=== PATIENT | male | born 1980 | race Caucasian/White ===

== ENCOUNTER 2019-11-14 14:58 | Emergency (ER) | payer OTHER, SELFPAY ==
[2019-11-14 17:15] VITALS: BP 0/0; PULSE 0; RESP 0; TEMP -17.7; TEMP 0; O2SAT 0
== END 2019-11-14 17:16 | disposition left against medical advice (07) ==
PROVIDERS: Emergency Provider Nurse Practitioner
DX: S61.011D Laceration without foreign body of right thumb without damage to nail, subsequent encounter (principal)

== ENCOUNTER 2020-07-13 13:28 | Observation (INO) | payer OTHER, SELFPAY ==
[2020-07-13] VITALS (19 sets, daily range): BP systolic 93–137; BP diastolic 56–86; PULSE 40–71; RESP 14–20; TEMP 36.4–36.7; O2SAT 96–100; BMI 23.1; BMI 19.2; BMI 20.6
--- NOTE | 2020-07-13 | IR_ITS ---
APPROVED REPORT Patient Location: Emergent Uncrater: YANI Hernandez RT (R) PROCEDURES Left heart catheterization Left ventriculogram Selective coronary angiogram INDICATION Acute anterior ST elevation myocardial infarction Informed consent was obtained prior to the procedure. COMPLICATIONS none Estimated Blood Loss: less than 10 mls TECHNIQUE One percent lidocaine used to anesthetize the right anterior aspect of the wrist. The right radial artery was accessed via the Seldinger technique. A 6 [place] sheath was placed in the right radial artery. 2.5 mg of verapamil, 800 mcg of nitroglycerin, 1mg Lidocaine and 5000 U Heparin were given through the arterial sheath. A Papa catheter was also used to perform left heart catheterization, left ventriculogram and selective coronary angiogram. At the end of the procedure the sheath was removed good hemostasis was achieved using Traclet band, patient was transferred to the postop holding area in stable condition. ANGIOGRAPHIC RESULTS The left main artery Normal The left anterior descending artery Normal The circumflex artery Normal The right coronary artery Dominant normal The DOWNS ventriculogram reveals Preserved 55% The left ventricular end-diastolic pressure 15 mmHg IMPRESSION Normal coronary arteries Preserved ejection fraction Mildly elevated LVEDP PLAN 1. Recommend echocardiogram 2. Pulmonary artery CTA to evaluate for pulmonary embolism 3. Recommend admitting with continued diagnostics to determine etiology of symptoms Electronically signed by : Carlos Eduardo Weiner, 07/13/2020 13:56:12
--- NOTE | 2020-07-13 13:28 | ECG_ITS ---
APPROVED REPORT Exam: Resting ECG HR:74 bpm ECG Measurements Heart Rate 74 AXES OK 160 P 72 QRSd 110 QRS 84 QT 376 T 61 QTc 417 <Conclusion> Normal sinus rhythm Incomplete left bundle branch block ST elevation, probably due to early repolarization Borderline ECG Electronically signed by : Reinaldo Jj, 07/14/2020 09:00:17
--- NOTE | 2020-07-13 13:33 | PC.NURSE ---
Addendum entered by Shannan Carnes RN 07/13/20 14:15: correction: EKG sent to Dr Weiner via STEMI phone at 1331. called quality assurance qa lab technician immediately after sending ekg Original Note: EKG sent to Dr. Weiner per STEMI phone contacted quality assurance qa lab technician to see if Dr. Weiner was in the quality assurance qa lab technician to notify him of EKG sent to him, spoke with Aleida Penny RN states he is in the back and she will notify him of EKG that was sent to him.
--- NOTE | 2020-07-13 13:38 | PC.NURSE ---
patient to lab associate via stretcher on cardiac monitoring accompanied by YENI Campbell and Tere Mcintosh RN.
--- NOTE | 2020-07-13 13:39 | PC.NURSE ---
[facility] called and said Dr Weiner is calling it a STEMI , they wanted pt brought to [facility] and they would do all the prepping
--- NOTE | 2020-07-13 13:42 | HMH.EDGENADL ---
ED Disposition Clinical Impression: Syncope and collapse Chest pain Qualifiers: Chest pain type: precordial pain Qualified Code(s): R07.2 - Precordial pain Disposition: Still a Patient Condition on Discharge: Fair - Critical Care Critical Care Time: No Attestation: On 07/13/20, the high probability of a clinically significant, sudden or life threatening deterioration of the following system(s) required my full and direct attention, intervention and personal management. The time I documented below is in addition to time spent performing reported procedures but includes the following listed in this critical care notation. Medical Decision Making - [place] Inquiry Pt receiving controlled substance: No Vital Signs: 07/13/20 13:28 Temperature 98.0 F Temperature Source Oral Pulse Rate [Right Radial] 71 Respiratory Rate 18 Blood Pressure [Right Arm] 119/82 Blood Pressure Mean [Right Arm] 94 Blood Pressure Source [Right Arm] Automatic Cuff Blood Pressure Position [Right Arm] Sitting 02 Sat by Pulse Oximetry 98 Oxygen Delivery Method Room Air - Lab Data Lab Results 07/13/20 13:35: SARS-CoV-2 IgG Ab (Rapid) Negative, SARS-CoV-2 IgM Ab (Rapid) Negative 07/13/20 13:35: WBC 7.1, RBC 4.18 L, Hgb 12.2 L, Hct 36.8 L, MCV 87.9, MCH 29.1, MCHC 33.1, RDW 13.7, Plt Count 270, MPV 8.1, Neut % (Auto) 49.0, Lymph % (Auto) 38.9, [place] % (Auto) 5.6, Eos % (Auto) 5.1, Baso % (Auto) 1.4, Neut # (Auto) 3.5, Lymph # (Auto) 2.8, [place] # (Auto) 0.4, Eos # (Auto) 0.4, Baso # (Auto) 0.1 07/13/20 13:35: Sodium 139, Potassium 3.6, Chloride 103, Carbon Dioxide 28, Anion Gap 11.6, BUN 20, Creatinine 0.80, Estimated Creat Clear 120, Estimated GFR 108, Est GFR ( Amer) 131, Glucose 103 H, Calcium 9.5, Total Bilirubin 0.4, Direct Bilirubin 0.1, Conjugated Bilirubin 0.0, Indirect Bilirubin 0.3, Unconjugated Bilirubin 0.4, AST 31, ALT 27, Alkaline Phosphatase 67, Troponin I < 0.01, Total Protein 7.4, Albumin 4.7 07/13/20 13:54: Activated Clotting Time 285 H* Result diagrams: 07/13/20 13:35 07/13/20 13:35 Orders (Tests/Meds): ED MEDICATIONS Generic Name Dose Route Start Last Admin Trade Name Marina PRN Reason Stop Dose Admin Acetaminophen 325 mg 07/13/20 15:00 Acetaminophen 325mg Tab PO 08/12/20 14:59 Q4HP PRN Mild Pain Acetaminophen 650 mg 07/13/20 15:00 Acetaminophen 325mg Tab PO 08/12/20 14:59 Q4HP PRN Moderate Pain Sodium Chloride 1,000 mls @ 50 mls/hr 07/13/20 16:15 07/13/20 16:42 Sod Chlor 0.9% 1000ml Bag IV 08/12/20 16:14 50 mls/hr .Q20H AVANI Administration Miscellaneous 1 each 07/13/20 14:46 Consider Dual Antiplatelet Therapy For Stent * 08/12/20 14:34 NEEDED PRN Reminder for s/p stent Nitroglycerin 0.4 mg 07/13/20 14:46 Nitrostat 0.4mg Sl Tablet SL 08/12/20 14:34 Q5MINP PRN Chest Pain Sodium Chloride 10 ml 07/13/20 16:14 Saline Flush 10ml Syringe IV 08/12/20 16:13 NEEDED PRN Maintain IV Site Discontinued Medications Generic Name Dose Route Start Last Admin Trade Name Marina PRN Reason Stop Dose Admin Acetaminophen 325 mg 07/13/20 14:35 Acetaminophen 325mg Tab PO 08/12/20 14:34 Q4HP PRN PAIN Acetaminophen 650 mg 07/13/20 14:35 Acetaminophen 325mg Tab PO 08/12/20 14:34 Q4HP PRN PAIN Aspirin 324 mg 07/13/20 13:39 07/13/20 13:42 Aspirin 81mg Chewable Tablet PO 07/13/20 13:40 324 mg ONCE ONE Administration Diphenhydramine HCl 50 mg 07/13/20 13:48 07/13/20 13:52 Benadryl 50mg/1ml Vial IV 07/13/20 13:49 50 mg ONCE ONE Administration Fentanyl Citrate 25 mcg 07/13/20 13:48 07/13/20 13:53 Fentanyl 100mcg/2ml Vial IV 07/14/20 13:48 75 mcg Q3MINP PRN Administration Moderate to Severe Pain Fentanyl Citrate 50 mcg 07/13/20 13:48 Fentanyl 100mcg/2ml Vial IV 07/14/20 13:48 Q3MINP PRN Moderate to Severe Pain Fentanyl Citrate 25 mcg 07/13/20 13
[2020-07-13 13:45] LABS: Basophils # 0.1 K/mm3 (0-0.2); Basophils % 1.4 % (0.1-2.0); Eosinophils # 0.4 K/mm3 (0.0-0.4); Eosinophils % 5.1 % (0.1-12.0); Hematocrit 36.8 % (42.0-52.0); Hemoglobin 12.2 g/dL (14.1-18.0); Lymphocytes # 2.8 K/mm3 (0.7-4.5); Lymphocytes % 38.9 % (10-50); Mean Corpuscular HGB Conc 33.1 g/dL (31.8-35.4); Mean Corpuscular Hemoglobin 29.1 pg (27.0-31.2); Mean Corpuscular Volume 87.9 fl (80-94); Mean Platelet Volume 8.1 fl (7.4-10.4); Monocytes # 0.4 K/mm3 (0.1-1.0); Monocytes % 5.6 % (1.7-9.3); Neutrophils # 3.5 K/mm3 (1.8-7.8); Platelet Count 270 K/mm3 (142-424); Red Blood Count 4.18 M/mm3 (4.60-6.20); Red Cell Distribution Width 13.7 % (11.5-17.5); White Blood Count 7.1 K/mm3 (4.8-10.8)
[2020-07-13 13:53] LABS: Alanine Aminotransferase 27 U/L (12-78); Albumin Level 4.7 g/dl (3.5-5.0); Alkaline Phosphatase 67 U/L (38-126); Anion Gap 11.6 mEq/L (5-15); Aspartate Amino Transferase 31 U/L (17-59); Bilirubin,Direct 0.1 mg/dl (0.0-0.4); Bilirubin,Indirect 0.3 mg/dL (0.0-0.9); Bilirubin,Total 0.4 mg/dl (0.2-1.3); Bilirubin,Unconjugated 0.4 mg/dL (0.0-1.1); Blood Urea Nitrogen 20 mg/dl (9-20); Calcium 9.5 mg/dl (8.4-10.2); Carbon Dioxide 28 mmol/L (22.0-30.0); Chloride 103 mmol/L (98-107); Creatinine Clearance Estimated 120 mL/min (50-200); Estimated Glomerular Filt Rate 108 ml/min (>60); GFR (African American) 131 ML/MIN (>60); Glucose 103 mg/dl (74-100); Potassium 3.6 mmoL/L (3.5-5.1); Sodium 139 mmol/L (136-145); Total Protein,Serum 7.4 g/dl (6.3-8.2)
[2020-07-13 14:05] LABS: Troponin I < 0.01 ng/ml (0.00-0.034)
[2020-07-13 14:09] LABS: Coronavirus 19 IgG Antibody Negative (Negative); Coronavirus 19 IgM Antibody Negative (Negative)
[2020-07-13 14:21] LABS: CATHL Activated Clotting Time 285 SEC (74-125)
--- NOTE | 2020-07-13 15:07 | PC.NURSE ---
Pt arrived to the floor at this time
[2020-07-13 17:44] LABS: Troponin I < 0.01 ng/ml (0.00-0.034)
--- NOTE | 2020-07-13 17:53 | PC.NURSE ---
TRACELET REMOVED AT 1730 PER PROTOCOL. NO COMPLICATION NOTED, PT DENIES PAIN AT SITE, PULSES PALPABLE DISTAL TO CATH SITE. HANDS WARM AND SENSATION INTACT. NO DRAINAGE OR BLEEDING NOTED.
--- NOTE | 2020-07-13 18:28 | PC.NURSE ---
telfa and tegaderm was applied to cath site after removal.
[2020-07-13 20:27] LABS: Troponin I < 0.01 ng/ml (0.00-0.034)
[2020-07-14] VITALS: PULSE 40
--- NOTE | 2020-07-14 03:59 | PC.NURSE ---
Pt rested well this shift. Right radial drsg remains C/D/I. No complaints reported to staff. Pt has been independent with ADL's w/ girlfriend at bedside throughout the night. Sinus alan on telemetry.
[2020-07-14 04:00] VITALS: BP 104/62; PULSE 50; PULSE 54; RESP 16; TEMP 36.8; O2SAT 97
[2020-07-14 05:11] VITALS: BMI 20.7
[2020-07-14 07:20] LABS: Basophils # 0.1 K/mm3 (0-0.2); Eosinophils # 0.4 K/mm3 (0.0-0.4); Eosinophils % 5.2 % (0.1-12.0); Hematocrit 35.3 % (42.0-52.0); Hemoglobin 11.7 g/dL (14.1-18.0); Lymphocytes % 29.6 % (10-50); Mean Corpuscular HGB Conc 33.2 g/dL (31.8-35.4); Mean Corpuscular Hemoglobin 28.8 pg (27.0-31.2); Mean Corpuscular Volume 86.8 fl (80-94); Mean Platelet Volume 7.5 fl (7.4-10.4); Monocytes # 0.4 K/mm3 (0.1-1.0); Monocytes % 5.6 % (1.7-9.3); Neutrophils # 3.9 K/mm3 (1.8-7.8); Neutrophils % 58.6 % (37.0-80.0); Platelet Count 245 K/mm3 (142-424); Red Blood Count 4.06 M/mm3 (4.60-6.20); Red Cell Distribution Width 13.6 % (11.5-17.5); White Blood Count 6.7 K/mm3 (4.8-10.8)
--- NOTE | 2020-07-14 07:23 | HMH.PHAVTE ---
[facility] Pharmacy VTE Monitoring - Patient Demographics Admission date: 07/13/20 Report Date: 07/14/20 Time: 07:23 Allergies/Adverse Reactions: Patient Allergies amoxicillin Allergy (Mild, Verified 07/13/20 13:59) Rash Penicillins Allergy (Verified 07/13/20 13:59) Unknown allergy reaction Height: 1.85 m Weight: 70.76 kg Patient Problems: Current Active Problems Chest pain (Acute) Syncope and collapse (Acute) - VTE Risk Labs: VTE Related Lab Results Hgb 11.7 g/dL (14.1-18.0) L 07/14/20 06:28 Hct 35.3 % (42.0-52.0) L 07/14/20 06:28 Plt Count 245 K/mm3 (142-424) 07/14/20 06:28 BUN 20 mg/dl (9-20) 07/13/20 13:35 Creatinine 0.80 mg/dl (0.66-1.25) 07/13/20 13:35 Estimated Creat Clear 120 mL/min (50-200) 07/13/20 13:35 Was VTE Risk Assessment Performed: Yes VTE Score: 4 VTE Risk Level: Low Risk - Prophylaxis VTE Prophylaxis Ordered?: Yes Types of VTE Prophylaxis: TEDS Knee High Location of Applied Device: Bilateral Lower Extremeties
[2020-07-14 07:31] LABS: Chloride 108 mmol/L (98-107); Potassium 4.2 mmoL/L (3.5-5.1); Sodium 138 mmol/L (136-145)
[2020-07-14 07:34] LABS: Blood Urea Nitrogen 17 mg/dl (9-20); Creatinine Clearance Estimated 167 mL/min (50-200); Estimated Glomerular Filt Rate 151 ml/min (>60); GFR (African American) 182 ML/MIN (>60)
[2020-07-14 07:35] LABS: Anion Gap 9.2 mEq/L (5-15); Calcium 8.6 mg/dl (8.4-10.2); Carbon Dioxide 25 mmol/L (22.0-30.0); Glucose 105 mg/dl (74-100)
[2020-07-14 08:00] VITALS: BP 100/52; PULSE 50; PULSE 51; RESP 18; TEMP 36.8; O2SAT 97; O2SAT 99
--- NOTE | 2020-07-14 09:24 | HMH.HP ---
*Admission Date: 07/13/20 *Chief complaint: Chest Pain *History of present illness: EKG is suspicious, but there are no reciprocal changes or T wave changes. EKG was transmitted to Dr. Weiner who feels it is possibly a STEMI and requested that the patient be sent straight to the Pharmaceutical Assistant where he is currently. 2:05 PM: Call received from Dr. Weiner. He reports that the coronary arteries were normal with preserved ejection fraction. He states that he spoke with Dr. Hamm and the patient is going to be admitted and have CTA and echocardiogram. General Adult HPI - General Stated complaint: chest pain Time Seen by Provider: 07/13/20 13:28 - History of Present Illness HPI narrative: States he had sudden onset of severe chest pain in his left anterior chest over his breast at 7 PM last night. It has been constant since onset. It does not radiate. It feels like he was stabbed or shot. It is associated with shortness of breath and he had diaphoresis as well as syncope last night. He tried to go to work today but could not work with the pain and therefore came to the emergency department. He does not have any known history of heart disease, hypertension, hyperlipidemia, or diabetes. He has no known heart disease in first-degree relatives. He is a smoker. He denies drug use. [facility] History Medical History: Denies:: Cancer, Diabetes Mellitus Type 1, Diabetes Mellitus Type 2, MRSA *Have you ever received a pneumonia vaccine?: No *Have you received a flu vaccine this season?: No Other Surgeries: Yes: Appendectomy, Cardiac Catheterization, Cardiac Surgery, Hernia Repair, Plastic Surgery Amputation: No Fractures: Yes - *Social History Last grade of school completed: 11th or 12th Smoking Status: Current every day smoker Tobacco Type: cigarettes # Packs/Day (cigarettes): 1 Alcohol Intake: never *Occupational Status:: employed Housing: house Household Members: significant other *Travel in the last 8 weeks: None Family Hx:: Unable to obtain Review of Systems - Review of Systems Review of systems:: pertinent systems reviewed and negative unless documented below - Constitutional Denies body ache(s), Denies chills - *Neurologic Reports fainting Meds Home Medications Medication Instructions Recorded Confirmed Type No Known Home Medications 07/13/20 07/13/20 History Allergies Allergy/AdvReac Type Severity Reaction Status Date / Time amoxicillin Allergy Mild Rash Verified 07/13/20 13:59 Penicillins Allergy Unknown Verified 07/13/20 13:59 allergy reaction Exam Vital signs and Labs for Last 24 Hours: Temp Pulse Resp BP Pulse Ox 98.2 F 51 L 18 100/52 L 97 07/14/20 08:00 07/14/20 08:00 07/14/20 08:00 07/14/20 08:00 07/14/20 08:00 Laboratory Results - last 24 hr 07/13/20 13:35: SARS-CoV-2 IgG Ab (Rapid) Negative, SARS-CoV-2 IgM Ab (Rapid) Negative 07/13/20 13:35: WBC 7.1, RBC 4.18 L, Hgb 12.2 L, Hct 36.8 L, MCV 87.9, MCH 29.1, MCHC 33.1, RDW 13.7, Plt Count 270, MPV 8.1, Neut % (Auto) 49.0, Lymph % (Auto) 38.9, [place] % (Auto) 5.6, Eos % (Auto) 5.1, Baso % (Auto) 1.4, Neut # (Auto) 3.5, Lymph # (Auto) 2.8, [place] # (Auto) 0.4, Eos # (Auto) 0.4, Baso # (Auto) 0.1 07/13/20 13:35: Sodium 139, Potassium 3.6, Chloride 103, Carbon Dioxide 28, Anion Gap 11.6, BUN 20, Creatinine 0.80, Estimated Creat Clear 120, Estimated GFR 108, Est GFR ( Amer) 131, Glucose 103 H, Calcium 9.5, Total Bilirubin 0.4, Direct Bilirubin 0.1, Conjugated Bilirubin 0.0, Indirect Bilirubin 0.3, Unconjugated Bilirubin 0.4, AST 31, ALT 27, Alkaline Phosphatase 67, Troponin I < 0.01, Total Protein 7.4, Albumin 4.7 07/13/20 13:54: Activated Clotting Time 285 H* 07/13/20 16:50: Troponin I < 0.01 07/13/20 19:42: Troponin I < 0.01 07/14/20 06:28: WBC 6.7, RBC 4.06 L, Hgb 11.7 L, Hct 35.3 L, MCV 86.8, MCH 28.8, MCHC 33.2, RDW 13.6, Plt Count 245, MPV 7.5, Neut % (Auto) 58.6, Lymph % (Auto) 29.6, [place] % (Auto) 5.6, Eos %
--- NOTE | 2020-07-14 09:38 | CA_ITS ---
APPROVED REPORT EXAM: Comprehensive 2D, Doppler, and color-flow Echocardiogram [facility] [employer] Attendant: Nelly Mondragon RVT Ht: 6 ft 0 in Wt: 156lbs BSA: 1.92 BP: 100/52 mmHg Indications: ACS,CP,SMOKER 2D Dimensions LVOT 2.52 cm (M/F) 1.5-2.5 M-Mode Dimensions RVDd 3.12 cm (0.9-2.6) LVDd 5.20 cm (3.5-5.7) LVDs 3.25 cm (3.5-5.7) IVSd 0.97 cm (0.6-1.1) PWd 1.04 cm (0.6-1.1) EF (Teich) 67.20% FS 37.50% EDV (Teich) 129.50 mL ESV (Teich) 42.50 mL LV Diastology E/A Ratio 2.61 Mitral Valve MV A Velocity 45.00 (40-130 cm/s) Left Ventricle Left atrium is normal size, left ventricle is normal size, there is no concentric left ventricular hypertrophy, visually estimated ejection fraction 55% with no regional wall motion abnormality. Diastolic parameters are inconclusive. Right Ventricle Right atrium is mildly enlarged, right ventricle is moderately dilated with normal contractility. Aortic Valve Aortic valve is minimally thickened and fibrosed. There is no aortic stenosis or aortic insufficiency. Mitral Valve Mitral valve is grossly normal, there is mild mitral regurgitation. Tricuspid Valve Tricuspid valve is grossly normal, there is mild tricuspid regurgitation. Tricuspid regurgitation jet velocity is inadequate for calculation of the right ventricular systolic pressure. Pulmonic Valve Pulmonic valve is poorly visualized. Great Vessels Aortic root is normal size. Pericardium No significant pericardial effusion noted Conclusion 1. Normal left ventricular size, preserved left ventricular systolic function, visually estimated ejection fraction 55% with no regional wall motion abnormality, diastolic parameters are inconclusive. 2. Moderately enlarged right ventricle with normal contractility. 3. Mild mitral and tricuspid regurgitation. 4. No significant pericardial effusion noted. Electronically signed by : Messi Patel, 07/15/2020 13:22:53
--- NOTE | 2020-07-14 11:51 | CT_ITS ---
PROCEDURE: CT ANGIO CHEST CLINCIAL INDICATION: cta of pulmon arteries Chest pain with shortness of air COMPARISON: No exams were available for comparison TECHNIQUE: IV Contrast: 70ML OPTIRAY 350 Axial images obtained with sagittal and coronal reformats. All CT scans at the facility use one or more dose reduction, viz: automated exposure control, ma/kV adjustment per patient size (including targeted exams where dose is matched to indication, i.e. head), or iterative reconstruction technique. FINDINGS: HEART AND MEDIASTINAL STRUCTURES: No evidence of pulmonary embolus or aortic aneurysm. No mediastinal or hilar mass or adenopathy. There is mild prominence of the right atrial appendage. LUNGS AND PLEURAL SPACES: There are small biapical blebs. There are atelectatic changes in the lung bases. No lobar consolidation or collapse. No effusions. BONY STRUCTURES: There are mild degenerative changes in the midthoracic spine UPPER ABDOMEN: There are few small periaortic lymph nodes on the left ADDITIONAL FINDINGS: No other significant abnormalities. IMPRESSION: 1. No evidence of pulmonary embolus. 2. Mild bibasilar atelectasis and other nonacute findings as described above Dictated by: Nikolas Guardado MD 07/14/2020 13:34 Nikolas Guardado MD in [place] 07/14/2020 13:34
[2020-07-14 11:56] VITALS: BP 109/45; PULSE 46; RESP 16; TEMP 36.6; O2SAT 97
--- NOTE | 2020-07-14 12:02 | HMH.CNCARD ---
History of Present Illness Consult date: 07/14/20 Requesting physician: Colin Hamm Consult reason: chest pain Chief complaint: chest pain History of present illness: This is a 40-year-old gentleman who presented to the emergency department with complaints of severe chest pain in the left anterior aspect of his chest. Constant pain and did not radiate. He states that it was a stabbing shooting pain. It was associated with shortness of breath, diaphoresis and syncope. The patient states that he tried to go to work after the episode of chest pain but was unable to do any work without having severe chest pain and decided to come into the emergency department. The patient's EKG was suspicious for a STEMI but there were no reciprocal changes or T wave changes. The patient was taken to the Heel Painter because of the concern of it being a STEMI. He was found to have normal coronary arteries, normal ejection fraction and a mildly elevated LVEDP. The patient was subsequently admitted to the hospital to have an echocardiogram and a CTA of his chest/pulmonary arteries to rule out a pulmonary emboli. This morning the patient states that his chest pain had resolved until he laid on his left side to have his echocardiogram and now the stabbing shooting sharp chest pain is back in the left, anterior aspect of the chest. He states that this is still associated with shortness of breath. [facility] History I have reviewed the patient's past medical history: Yes Medical History: Denies:: Cancer, Diabetes Mellitus Type 1, Diabetes Mellitus Type 2, MRSA *Have you ever received a pneumonia vaccine?: No *Have you received a flu vaccine this season?: No Other Surgeries: Yes: Appendectomy, Cardiac Catheterization, Cardiac Surgery, Hernia Repair, Plastic Surgery Amputation: No Fractures: Yes - *Social History Last grade of school completed: 11th or 12th Smoking Status: Current every day smoker Tobacco Type: cigarettes # Packs/Day (cigarettes): 1 Alcohol Intake: never *Occupational Status:: employed Housing: house Household Members: significant other *Travel in the last 8 weeks: None Family Hx:: Unable to obtain Meds Home Medications Medication Instructions Recorded Confirmed Type No Known Home Medications 07/13/20 07/13/20 History Allergies Allergy/AdvReac Type Severity Reaction Status Date / Time amoxicillin Allergy Mild Rash Verified 07/13/20 13:59 Penicillins Allergy Unknown Verified 07/13/20 13:59 allergy reaction Exam Vital signs and Labs for Last 24 Hours: Temp Pulse Resp BP Pulse Ox 97.8 F 46 L 16 109/45 L 97 07/14/20 11:56 07/14/20 11:56 07/14/20 11:56 07/14/20 11:56 07/14/20 11:56 Laboratory Results - last 24 hr 07/13/20 13:35: SARS-CoV-2 IgG Ab (Rapid) Negative, SARS-CoV-2 IgM Ab (Rapid) Negative 07/13/20 13:35: WBC 7.1, RBC 4.18 L, Hgb 12.2 L, Hct 36.8 L, MCV 87.9, MCH 29.1, MCHC 33.1, RDW 13.7, Plt Count 270, MPV 8.1, Neut % (Auto) 49.0, Lymph % (Auto) 38.9, [place] % (Auto) 5.6, Eos % (Auto) 5.1, Baso % (Auto) 1.4, Neut # (Auto) 3.5, Lymph # (Auto) 2.8, [place] # (Auto) 0.4, Eos # (Auto) 0.4, Baso # (Auto) 0.1 07/13/20 13:35: Sodium 139, Potassium 3.6, Chloride 103, Carbon Dioxide 28, Anion Gap 11.6, BUN 20, Creatinine 0.80, Estimated Creat Clear 120, Estimated GFR 108, Est GFR ( Amer) 131, Glucose 103 H, Calcium 9.5, Total Bilirubin 0.4, Direct Bilirubin 0.1, Conjugated Bilirubin 0.0, Indirect Bilirubin 0.3, Unconjugated Bilirubin 0.4, AST 31, ALT 27, Alkaline Phosphatase 67, Troponin I < 0.01, Total Protein 7.4, Albumin 4.7 07/13/20 13:54: Activated Clotting Time 285 H* 07/13/20 16:50: Troponin I < 0.01 07/13/20 19:42: Troponin I < 0.01 07/14/20 06:28: WBC 6.7, RBC 4.06 L, Hgb 11.7 L, Hct 35.3 L, MCV 86.8, MCH 28.8, MCHC 33.2, RDW 13.6, Plt Count 245, MPV 7.5, Neut % (Auto) 58.6, Lymph % (Auto) 29.6, [place] % (Auto) 5.6, Eos % (Auto) 5.2, Baso % (Auto) 1.0, Neut # (Auto) 3.9, Lymph # (Auto) 2.0, [place] # (Au
[2020-07-14 14:41] VITALS: PULSE 50
--- NOTE | 2020-07-14 15:08 | HMH.DCSUM ---
General - General Admission date:: 07/13/20 Discharge date: 07/14/20 HPI HPI: 40-year-old male presented emergency room complaints of severe left-sided chest pain that has been a constant stabbing pain, he denies radiation but admits he was short of breath, and diaphoretic. This episode lasted several minutes he then went to work he reports that the pain increased at work he could not handle the severe pain he over went to the emergency room. While in the emergency room his EKG was suspicious for a STEMI, but there were no reciprocal changes or T wave changes, he was emergently taken to the Pipe Fitter Supervisor which revealed normal coronary arteries normal ejection fraction and a mildly elevated LVEDP. He does report a mother with cardiac history and the many of her brothers and sisters and his cousins reporting cardiac bypasses and cardiac stents. He does report smoking 1 pack a day for too many years to count, importance of tobacco cessation discussed with patient. CTA 07/14/2020: IMPRESSION: 1. No evidence of pulmonary embolus. 2. Mild bibasilar atelectasis and other nonacute findings as described above Dictated by: PATTI Guardado 07/13/20: ANGIOGRAPHIC RESULTS The left main artery Normal The left anterior descending artery Normal The circumflex artery Normal The right coronary artery Dominant normal The DOWNS ventriculogram reveals Preserved 55% The left ventricular end-diastolic pressure 15 mmHg IMPRESSION Normal coronary arteries Preserved ejection fraction Mildly elevated LVEDP PLAN 1. Recommend echocardiogram 2. Pulmonary artery CTA to evaluate for pulmonary embolism 3. Recommend admitting with continued diagnostics to determine etiology of symptoms Electronically signed by : Carlos Eduardo Weiner, Objective Vital signs: Temp Pulse Resp BP Pulse Ox 97.8 F 50 L 16 109/45 L 97 07/14/20 11:56 07/14/20 14:41 07/14/20 11:56 07/14/20 11:56 07/14/20 11:56 Results Labs on day of discharge: Labs from last 24 hours 07/14/20 07/14/20 07/13/20 06:28 06:28 19:42 WBC 6.7 RBC 4.06 L Hgb 11.7 L Hct 35.3 L MCV 86.8 MCH 28.8 MCHC 33.2 RDW 13.6 Plt Count 245 MPV 7.5 Neut % (Auto) 58.6 Lymph % (Auto) 29.6 [place] % (Auto) 5.6 Eos % (Auto) 5.2 Baso % (Auto) 1.0 Neut # (Auto) 3.9 Lymph # (Auto) 2.0 [place] # (Auto) 0.4 Eos # (Auto) 0.4 Baso # (Auto) 0.1 Sodium 138 Potassium 4.2 Chloride 108 H Carbon Dioxide 25 Anion Gap 9.2 BUN 17 Creatinine 0.60 L D Estimated Creat Clear 167 Estimated GFR 151 Est GFR ( Amer) 182 D Glucose 105 H Calcium 8.6 Troponin I < 0.01 07/13/20 16:50 WBC RBC Hgb Hct MCV MCH MCHC RDW Plt Count MPV Neut % (Auto) Lymph % (Auto) [place] % (Auto) Eos % (Auto) Baso % (Auto) Neut # (Auto) Lymph # (Auto) [place] # (Auto) Eos # (Auto) Baso # (Auto) Sodium Potassium Chloride Carbon Dioxide Anion Gap BUN Creatinine Estimated Creat Clear Estimated GFR Est GFR ( Amer) Glucose Calcium Troponin I < 0.01 Discharge Plan - Patient Discharge Instructions ACTIVITY: Continue current activity DIET: continue same diet Patient Instructions: DI for Cardiac Catheterization, DI for Surgical Site Infection, DI for Chest Pain - Follow up Plan Follow up with: Kelli Merida APRN [Advanced Practice Nurse] - 1 week Carlos Eduardo Weiner MD [Staff Physician] - 2 weeks Disposition: Home, Self-Usp Medications: Home Medications Medication Instructions Recorded Confirmed Type No Known Home Medications 07/13/20 07/13/20 History Prescriptions/Medication Reconciliation: No Action No Known Home Medications - Problem Reconciliation Problems Reviewed?: Yes
--- NOTE | 2020-07-14 17:04 | HMH.HPDC ---
General - General Admission date:: 07/13/20 Discharge date: 07/14/20 *Admission Date: 07/13/20 *Chief complaint: Chest Pain *History of present illness: 40-year-old male presented emergency room complaints of severe left-sided chest pain that has been a constant stabbing pain, he denies radiation but admits he was short of breath, and diaphoretic. This episode lasted several minutes he then went to work he reports that the pain increased at work he could not handle the severe pain he over went to the emergency room. While in the emergency room his EKG was suspicious for a STEMI, but there were no reciprocal changes or T wave changes, he was emergently taken to the [facility] History Medical History: Denies:: Cancer, Diabetes Mellitus Type 1, Diabetes Mellitus Type 2, MRSA *Have you ever received a pneumonia vaccine?: No *Have you received a flu vaccine this season?: No Other Surgeries: Yes: Appendectomy, Cardiac Catheterization, Cardiac Surgery, Hernia Repair, Plastic Surgery Amputation: No Fractures: Yes - *Social History Last grade of school completed: 11th or 12th Smoking Status: Current every day smoker Tobacco Type: cigarettes # Packs/Day (cigarettes): 1 Alcohol Intake: never *Occupational Status:: employed Housing: house Household Members: significant other *Travel in the last 8 weeks: None Family Hx:: Unable to obtain Review of Systems - Constitutional Denies body ache(s), Denies chills - Eyes Denies blurry vision, Denies double vision - ENT Denies dizziness, Denies difficulty swallowing - *Cardiovascular Reports chest pain, Reports chest pain at rest, Reports excessive sweating, Reports shortness of breath, Denies leg swelling - *Respiratory Reports shortness of breath - *Gastrointestinal Denies abdominal pain, Denies change in bowel habits - *Musculoskeletal Denies joint pain, Denies muscle weakness - Integumentary/Breasts Denies change in skin color, Denies non-healing lesions - *Neurologic Reports fainting, Denies abnormal walking, Denies localized weakness - Psychiatric Denies behavioral changes, Denies hopelessness - Endocrine Denies cold intolerance, Denies heat intolerance - Hematologic/Lymphatic Denies easy bleeding, Denies easy bruising - Allergic/Immunologic Denies GI upset with certain foods, Denies tongue swelling Exam Vital signs and Labs for Last 24 Hours: Temp Pulse Resp BP Pulse Ox 97.8 F 50 L 16 109/45 L 97 07/14/20 11:56 07/14/20 14:41 07/14/20 11:56 07/14/20 11:56 07/14/20 11:56 Laboratory Results - last 24 hr 07/13/20 16:50: Troponin I < 0.01 07/13/20 19:42: Troponin I < 0.01 07/14/20 06:28: WBC 6.7, RBC 4.06 L, Hgb 11.7 L, Hct 35.3 L, MCV 86.8, MCH 28.8, MCHC 33.2, RDW 13.6, Plt Count 245, MPV 7.5, Neut % (Auto) 58.6, Lymph % (Auto) 29.6, [place] % (Auto) 5.6, Eos % (Auto) 5.2, Baso % (Auto) 1.0, Neut # (Auto) 3.9, Lymph # (Auto) 2.0, [place] # (Auto) 0.4, Eos # (Auto) 0.4, Baso # (Auto) 0.1 07/14/20 06:28: Sodium 138, Potassium 4.2, Chloride 108 H, Carbon Dioxide 25, Anion Gap 9.2, BUN 17, Creatinine 0.60 L D, Estimated Creat Clear 167, Estimated GFR 151, Est GFR ( Amer) 182 D, Glucose 105 H, Calcium 8.6 I & O for Last 24 hours: Intake & Output 07/11/20 07/12/20 07/13/20 07/14/20 23:59 23:59 23:59 23:59 Intake Total 240 / 240 1559 / 1559 Output Total 150 / 150 1325 / 1325 Balance 90 / 90 234 / 234 Weight 156 lb 6 oz 156 lb - Constitutional no acute distress - *Routine HEENT Exam Head: Present: normocephalic. Absent: tenderness of temporal artery Eye: Present: EOMI. Absent: periorbital tenderness ENT: Present: mucous membranes moist. Absent: sinus tenderness - *Routine Neck Exam Present: full ROM, trachea midline. Absent: JVD, tracheal deviation - *Routine Respiratory Exam Present: CTA bilaterally. Absent: accessory muscle use - *Routine Cardiovascular Exam Present: RRR - *Routine Abdominal Exam
== END 2020-07-14 16:30 | disposition home or self-care (01) ==
LOC: ER 13:56 → CATHLAB 14:36 → 2ND 14:37
PROVIDERS: Internal Medicine; Admitting Provider Emergency Medicine; Emergency Provider Emergency Medicine; Visit Provider Emergency Medicine
DX: I21.02 ST elevation (STEMI) myocardial infarction involving left anterior descending coronary artery (principal); R07.9 Chest pain, unspecified; Z72.0 Tobacco use; R55 Syncope and collapse
CPT/HCPCS: 36415; 71275; 80048; 80076; 84484; 85025; 85347; 86328; 93005; 93306; 93458; 99152; 99284; C1725; C1769; G0378; J1644; Q9967

== ENCOUNTER → 2020-07-21 15:13 | Outpatient (CLI) | payer OTHER, SELFPAY ==
[2020-07-21 15:30] LABS: Basophils # 0.1 K/mm3 (0-0.2); Eosinophils # 0.4 K/mm3 (0.0-0.4); Eosinophils % 5.2 % (0.1-12.0); Hematocrit 37.5 % (42.0-52.0); Hemoglobin 12.7 g/dL (14.1-18.0); Lymphocytes # 2.9 K/mm3 (0.7-4.5); Lymphocytes % 36.9 % (10-50); Mean Corpuscular HGB Conc 33.8 g/dL (31.8-35.4); Mean Corpuscular Hemoglobin 29.3 pg (27.0-31.2); Mean Corpuscular Volume 86.6 fl (80-94); Mean Platelet Volume 7.7 fl (7.4-10.4); Monocytes # 0.4 K/mm3 (0.1-1.0); Monocytes % 4.5 % (1.7-9.3); Neutrophils # 4.1 K/mm3 (1.8-7.8); Neutrophils % 52.4 % (37.0-80.0); Platelet Count 303 K/mm3 (142-424); Red Blood Count 4.34 M/mm3 (4.60-6.20); Red Cell Distribution Width 13.4 % (11.5-17.5); White Blood Count 7.9 K/mm3 (4.8-10.8)
--- NOTE | 2020-07-21 15:32 | ECG_ITS ---
APPROVED REPORT Exam: Resting ECG HR:56 bpm ECG Measurements Heart Rate 56 AXES NM 164 P 73 QRSd 114 QRS 86 QT 392 T 58 QTc 378 <Conclusion> Sinus bradycardia Incomplete left bundle branch block Borderline ECG Electronically signed by : Ash Rao, 07/23/2020 06:36:49
--- NOTE | 2020-07-21 15:38 | XR_ITS ---
PROCEDURE: XR CHEST 2V CLINICAL HISTORY: chest pain COMPARISON: CT CT ANGIO CHEST from 07/14/2020 FINDINGS: The cardiomediastinal silhouette and pulmonary vascularity are within normal limits. There is hyperinflation with hyperlucency of the lungs consistent with COPD. No lobar consolidation or collapse. There is evidence of old granulomatous disease. Degenerative changes thoracic spine. IMPRESSION: Edges of COPD otherwise negative Dictated by: Nikolas Guardado MD 07/21/2020 16:18 Nikolas Guardado MD in [place] 07/21/2020 16:19
[2020-07-21 15:40] LABS: Chloride 103 mmol/L (98-107); Potassium 3.9 mmoL/L (3.5-5.1); Sodium 138 mmol/L (136-145)
[2020-07-21 15:42] LABS: Alanine Aminotransferase 21 U/L (12-78); Aspartate Amino Transferase 33 U/L (17-59); Blood Urea Nitrogen 22 mg/dl (9-20); Estimated Glomerular Filt Rate 126 ml/min (>60); GFR (African American) 153 ML/MIN (>60)
[2020-07-21 15:43] LABS: Albumin Level 4.5 g/dl (3.5-5.0); Albumin/Globulin Ratio 1.6 (1.1-1.8); Alkaline Phosphatase 61 U/L (38-126); Anion Gap 11.9 mEq/L (5-15); Bilirubin,Total 0.3 mg/dl (0.2-1.3); Calcium 9.5 mg/dl (8.4-10.2); Carbon Dioxide 27 mmol/L (22.0-30.0); Chol/HDL Ratio 3.2 (1-3.5); Cholesterol 173 mg/dl (140-200); Globulin 2.8 g/dL (1.3-3.2); Glucose 88 mg/dl (74-100); HDL Cholesterol 54 mg/dl (40-60); Total Protein,Serum 7.3 g/dl (6.3-8.2); Triglycerides 52 mg/dl (30-150); VLDL Cholesterol 10 mg/dL (0-40)
[2020-07-21 15:54] LABS: Direct LDL Cholesterol 98.76 mg/dL (100-129)
[2020-07-21 15:59] LABS: T4 (Thyroxine) 7.9 ug/dl (5.53-11.0)
[2020-07-21 16:00] LABS: Hemoglobin A1C 5.7 % (4.0-6.0)
[2020-07-21 16:13] LABS: Thyroid Stimulating Hormone 1.81 uIU/mL (0.465-4.68)
== END ==
PROVIDERS: Visit Provider Nurse Practitioner Family
DX: R07.89 Other chest pain (principal); R00.2 Palpitations; R73.09 Other abnormal glucose
CPT/HCPCS: 36415; 71046; 80053; 80061; 83036; 84436; 84443; 85025; 93005; 93225; 93226

== ENCOUNTER → 2020-07-28 10:31 | Outpatient (CLI) | payer OTHER, SELFPAY | PROVIDERS: PCP Nurse Practitioner Family; Visit Provider Urology | DX: R00.2 Palpitations (principal); R06.00 Dyspnea, unspecified; R07.2 Precordial pain; R55 Syncope and collapse; Z72.0 Tobacco use | CPT/HCPCS: 93270 ==

== ENCOUNTER → 2020-07-29 14:38 | Outpatient (CLI) | payer OTHER, SELFPAY ==
--- NOTE | 2020-07-29 14:43 | XR_ITS ---
PROCEDURE: XR CERVICAL SPINE 5V CLINICAL INDICATION: arm numbness COMPARISON: No exams were available for comparison FINDINGS: The odontoid process is very hypoplastic/missing. There is some minimal offset of the lateral masses of C1 on C2 slightly subluxed toward the left. There is some minimal dorsal displacement of C1 on C2. There is mild prominence of the transverse processes of C7. No obvious fracture. 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 Suggest MRI for further evaluation. Dictated by: Nikolas Guardado MD 07/29/2020 15:50 Nikolas Guardado MD in [place] 07/29/2020 15:50
== END ==
PROVIDERS: PCP Nurse Practitioner Family; Visit Provider Nurse Practitioner Family
DX: R20.2 Paresthesia of skin (principal)
CPT/HCPCS: 72050

== ENCOUNTER → 2020-08-04 11:31 | Outpatient (CLI) | payer OTHER, SELFPAY | PROVIDERS: PCP Nurse Practitioner Family; Visit Provider Nurse Practitioner Family | DX: R06.00 Dyspnea, unspecified (principal) | CPT/HCPCS: 94060; 94618; 94726; 94729 ==

== ENCOUNTER → 2020-08-06 07:38 | Outpatient (CLI) | payer OTHER, SELFPAY ==
--- NOTE | 2020-08-06 07:40 | MR_ITS ---
PROCEDURE: MR CERVICAL SPINE WO CON CLINICAL INDICATION: neck pain with numbness Pt. has hx of DDD with neck pain and bilateral upper extremity tingling and numbness. Abnormal plain film with absent odontoid COMPARISON: DX XR CERVICAL SPINE 5V from 07/29/2020 TECHNIQUE: Standard multiplanar multiecho sequences are performed without contrast. 3-D MIP and myelographic images are also rendered and reviewed FINDINGS: There is absence of the body of the dens of C2. There does appear to be a ossification center at the superior aspect of C2. There is posterior subluxation of C1 by approximately 6 mm. There is no impingement upon the cord however, there is increased T2 signal with some narrowing of the spinal cord at the C1-C2 area which may be due to some underlying gliotic change. The remaining cervical spine has an unremarkable appearance. No disc herniation or canal stenosis is evident. 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 At this same level there is increased T2 signal within the cervical cord suggesting underlying gliotic change with some associated thinning of the cord as well.. Recommend neurology/neuro surgical consult as this can be unstable anatomy with risk of cord injury. The gliotic change at the C1-C2 level could be due to prior or repetitive injury to the cord. Dictated by: Nikolas Guardado MD 08/07/2020 14:43 Nikolas Guardado MD in [place] 08/07/2020 14:43 NATASHA
== END ==
PROVIDERS: PCP Nurse Practitioner Family; Visit Provider Nurse Practitioner Family
DX: M54.12 Radiculopathy, cervical region (principal); R20.0 Anesthesia of skin
CPT/HCPCS: 72141; 76376

== ENCOUNTER → 2020-10-04 10:23 | Outpatient (POV) | payer OTHER, SELFPAY | PROVIDERS: Visit Provider Nurse Practitioner Family | DX: Z00.00 Encounter for general adult medical examination without abnormal findings (principal) ==

== ENCOUNTER → 2020-10-07 08:34 | Outpatient (CLI) | payer OTHER, SELFPAY ==
[2020-10-07 09:22] LABS: Basophils # 0.1 K/mm3 (0-0.2); Basophils % 1.5 % (0.1-2.0); Eosinophils # 0.2 K/mm3 (0.0-0.4); Eosinophils % 4.2 % (0.1-12.0); Hematocrit 44.6 % (42.0-52.0); Hemoglobin 14.2 g/dL (14.1-18.0); Lymphocytes # 1.9 K/mm3 (0.7-4.5); Lymphocytes % 32.9 % (10-50); Mean Corpuscular HGB Conc 31.9 g/dL (31.8-35.4); Mean Corpuscular Volume 87.8 fl (80-94); Mean Platelet Volume 7.4 fl (7.4-10.4); Monocytes # 0.3 K/mm3 (0.1-1.0); Neutrophils # 3.2 K/mm3 (1.8-7.8); Neutrophils % 55.4 % (37.0-80.0); Platelet Count 354 K/mm3 (142-424); Red Blood Count 5.08 M/mm3 (4.60-6.20); Red Cell Distribution Width 13.2 % (11.5-17.5); White Blood Count 5.7 K/mm3 (4.8-10.8)
--- NOTE | 2020-10-07 10:24 | CT_ITS ---
PROCEDURE: CT ABDOMEN PELVIS W CON CLINICAL INDICATION: ABD PAIN,NAUSEA,CONSTIPATION,RT INGUINAL HERNIA ?right inguinal hernia with pain COMPARISON: No exams were available for comparison TECHNIQUE: IV Contrast: 75ML Isovue 370 Oral Contrast None Axial images obtained with sagittal and coronal reformats. All CT scans at the facility use one or more dose reduction, viz: automated exposure control, ma/kV adjustment per patient size (including targeted exams where dose is matched to indication, i.e. head), or iterative reconstruction technique. FINDINGS: LOWER THORAX: No acute finding ABDOMEN & PELVIS: The liver, gallbladder, spleen, adrenal glands, pancreas, and kidneys have an unremarkable appearance. No renal or ureteral calculi. No hydronephrosis. Prior appendectomy. No intestinal obstruction or free air. No pelvic mass or abnormal fluid collection. There is a tiny umbilical hernia containing fat. There is no other abdominal wall or inguinal hernia apparent. No acute bony findings. IMPRESSION: No acute finding. There is a tiny umbilical hernia. No inguinal hernia or other abdominal wall hernia apparent. Dictated by: Nikolas Guardado MD 10/08/2020 08:54 Nikolas Guardado MD in [place] 10/08/2020 08:54
[2020-10-07 11:30] LABS: Chloride 102 mmol/L (98-107)
[2020-10-07 11:31] LABS: Potassium 4.9 mmoL/L (3.5-5.1); Sodium 139 mmol/L (136-145)
[2020-10-07 11:33] LABS: Alanine Aminotransferase 13 U/L (12-78); Anion Gap 12.9 mEq/L (5-15); Aspartate Amino Transferase 24 U/L (17-59); Blood Urea Nitrogen 11 mg/dl (9-20); Carbon Dioxide 29 mmol/L (22.0-30.0); Estimated Glomerular Filt Rate 108 ml/min (>60); GFR (African American) 131 ML/MIN (>60)
[2020-10-07 11:34] LABS: Albumin Level 5.1 g/dl (3.5-5.0); Albumin/Globulin Ratio 1.9 (1.1-1.8); Alkaline Phosphatase 53 U/L (38-126); Bilirubin,Total 0.5 mg/dl (0.2-1.3); Calcium 9.9 mg/dl (8.4-10.2); Globulin 2.7 g/dL (1.3-3.2); Glucose 94 mg/dl (74-100); Total Protein,Serum 7.8 g/dl (6.3-8.2)
[2020-10-07 11:40] LABS: C-Reactive Protein 0.8 mg/L (0-4)
[2020-10-08 16:20] LABS: Deamidated Gliadin Abs, IgA 8 units (0-19); Deamidated Gliadin Abs, IgG 2 units (0-19); Tissue Transglutaminase IgA Ab <2 U/mL (0-3); Tissue Transglutaminase IgG Ab 2 U/mL (0-5)
[2020-10-08 17:47] LABS: Endomysial IgA Antibody Negative (Negative)
[2020-10-09 11:00] LABS: Reticulin IgA Antibody Negative titer (Neg:<1:2.5)
[2020-10-11 14:59] LABS: Saccharomyces cerevisiae, IgA <20.0 Units (0.0-24.9); Saccharomyces cerevisiae, IgG <20.0 Units (0.0-24.9)
== END ==
PROVIDERS: PCP Emergency Medicine; Visit Provider Nurse Practitioner Family
DX: R10.31 Right lower quadrant pain (principal); R10.32 Left lower quadrant pain; R11.0 Nausea; R19.4 Change in bowel habit; K59.00 Constipation, unspecified; K40.90 Unilateral inguinal hernia, without obstruction or gangrene, not specified as recurrent
CPT/HCPCS: 36415; 74177; 80053; 83516; 85025; 86140; 86255; 86256; 86671; Q9967

== ENCOUNTER → 2020-10-07 08:42 | Outpatient (CLI) | payer OTHER, SELFPAY | PROVIDERS: Visit Provider Nurse Practitioner Family | DX: R10.9 Unspecified abdominal pain (principal) | CPT/HCPCS: 36415; 80053; 83516; 85025; 86140; 86255; 86256; 86671 ==

== ENCOUNTER 2020-10-09 16:46 | Emergency (ER) | payer OTHER, SELFPAY ==
[2020-10-09 16:46] VITALS: BP 131/75; PULSE 89; RESP 16; TEMP 36.6; O2SAT 94; BMI 21.1
--- NOTE | 2020-10-09 17:22 | XR_ITS ---
PROCEDURE: XR HAND RT MIN 3V CLINICAL INDICATION: injury/swelling at MCPs COMPARISON: No exams were available for comparison FINDINGS: There is fracture mid shaft 4th metacarpal with dorsal angulation at the fracture site. The remaining metacarpals appear intact. All phalanges appear intact. There may be mild flexion deformity of the PIP joint of the little finger. The carpal bones appear normal. IMPRESSION: Transverse angulated fracture mid shaft 4th metacarpal Dictated by: Dr. Aneesh Guillen MD 10/10/2020 07:42 Dr. Aneesh Guillen MD in [place] 10/10/2020 07:42
--- NOTE | 2020-10-09 17:24 | HMH.EDWNDL ---
ED Disposition Clinical Impression: Laceration Closed fracture of 4th metacarpal Qualifiers: Encounter type: initial encounter Metacarpal location: shaft Fracture alignment: displaced Laterality: right Qualified Code(s): S62.324A - Displaced fracture of shaft of fourth metacarpal bone, right hand, initial encounter for closed fracture Disposition: Home, Self-Care Condition on Discharge: Fair Instructions: DI for Laceration Repair Prescriptions: Hydrocodone/Acetaminophen [Hydrocodone-Acetamin 5-325 mg] 1 each PO Q6HP PRN #12 tab PRN Reason: pain Prescription Printed Ketorolac Tromethamine [Toradol 10mg tablet] 10 mg PO Q6H 5 Days #20 tab Transmission Status: Received by [facility] Referrals: Kelli Merida APRN [Primary Care Provider] - - Critical Care Critical Care Time: No Attestation: On 10/09/20, the high probability of a clinically significant, sudden or life threatening deterioration of the following system(s) required my full and direct attention, intervention and personal management. The time I documented below is in addition to time spent performing reported procedures but includes the following listed in this critical care notation. Medical Decision Making - Medical Records Medical records reviewed: Yes: I reviewed the patient's medical records. - [place] Inquiry Pt receiving controlled substance: Yes [place] was queried for this patient: Yes Reference #:: [id number] Risks and benefits of using a controlled substance: were discussed with pt by me Vital Signs: 10/09/20 16:46 Temperature 98 F Temperature Source Oral Pulse Rate [Radial] 89 Respiratory Rate 16 Blood Pressure [Right Arm] 131/75 Blood Pressure Mean [Right Arm] 93 Blood Pressure Position [Right Arm] Sitting 02 Sat by Pulse Oximetry 94 L Oxygen Delivery Method Room Air Orders (Tests/Meds): ED MEDICATIONS Discontinued Medications Generic Name Dose Route Start Last Admin Trade Name Freq PRN Reason Stop Dose Admin Ceftriaxone Sodium 1 gm 10/09/20 17:23 Ceftriaxone 1gm Vial IM 10/09/20 17:24 ONCE ONE Protocol Ketorolac Tromethamine 60 mg 10/09/20 17:23 Ketorolac 60mg/2ml Vial IM 10/09/20 17:24 ONCE ONE Lidocaine HCl 0 ml 10/09/20 17:23 Lidocaine 1% 5ml Pf Vial IM 10/09/20 17:24 ONCE ONE Orphenadrine Citrate 60 mg 10/09/20 17:24 Orphenadrine Citrate 60mg/2ml Vial IM 10/09/20 17:25 ONCE ONE ORDERS Category Date Time Status Hand XR right minimum 3 views [XR hand RT min 3V] Stat Exams 10/09/20 17:22 Ordered - Radiology Data #1 Image(s): Hand Image Reviewed: Yes I reviewed the patient's radiology image 4th MCP fx w/ minimal displacement Wound/Laceration HPI - General Chief Complaint: Wound/Laceration Stated Complaint: AO 10/09 @ 1600 laceration to both hands Time Seen by Provider: 10/09/20 17:00 Mode of Arrival: Ambulatory Source of Information: Patient Limitations: No Limitations Description of Symptoms (Recalled from ER Triage Doc. by RN): TO ED PER PVT CAR WITH C/O LACERATIONS, SWELLING TO RT HAND, LACERATIONS TO LT INDEX FINGER AND ABRASION TO RT EYE. STATES WORKING ON HIS CHAINSAW IT FLIPPED BACKWARDS HITTING HIM RT SIDE OF FACE AND THEN TRYING TO CATCH IT BEFORE IT FELL TO THE GROUND HITTING HIS DOG. 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 - History of Present Illness HPI narrative: This is a 40-year-old male that sustained laceration to the left and right hands while using chainsaw earlier. Patient reports not cutting himself with a chainsaw however following and striking the ground and catching his right hand under a lawnmower deck causing laceration to his right hand and slipping the left hand across the chain causing laceration to the left index finger. Bleeding controlled prior to arrival. Patient does report pain at the dorsum of the right hand. Pain is s
[2020-10-09 18:47] VITALS: BP 125/74; PULSE 78; RESP 16; TEMP 36.6; O2SAT 98
== END 2020-10-09 18:49 | disposition home or self-care (01) ==
PROVIDERS: Emergency Provider Emergency Medicine; PCP Nurse Practitioner Family
DX: S62.324A Displaced fracture of shaft of fourth metacarpal bone, right hand, initial encounter for closed fracture (principal); S61.411A Laceration without foreign body of right hand, initial encounter; S61.211A Laceration without foreign body of left index finger without damage to nail, initial encounter; S00.211A Abrasion of right eyelid and periocular area, initial encounter; Y92.89 Other specified places as the place of occurrence of the external cause; W22.8XXA Striking against or struck by other objects, initial encounter; W18.30XA Fall on same level, unspecified, initial encounter; Z88.0 Allergy status to penicillin; F17.210 Nicotine dependence, cigarettes, uncomplicated
CPT/HCPCS: 12002; 29125; 73130; 96374; 96375; 99283; J2405

== ENCOUNTER → 2020-10-11 15:52 | Outpatient (CLI) | payer OTHER, SELFPAY ==
--- NOTE | 2020-10-11 15:56 | XR_ITS ---
PROCEDURE: XR HAND RT MIN 3V CLINICAL INDICATION: RT 4th MC fracture; xrays in splint Follow-up fracture COMPARISON: CR XR HAND RT MIN 3V from 10/09/2020 FINDINGS: There is a mildly displaced fracture involving the midshaft of 4th metacarpal. There is 2-3 mm ulnar displacement of the distal fracture fragment with palm are angulation of the distal fracture fragment. There is a splint in place medially IMPRESSION: No change in the mildly displaced 4th metacarpal fracture with anterior angulation of the distal fracture fragment Dictated by: Nikolas Guardado MD 10/11/2020 16:11 Nikolas Guardado MD in [place] 10/11/2020 16:11
== END ==
PROVIDERS: PCP Nurse Practitioner Family; Visit Provider Orthopaedic Surgery
DX: S62.304A Unspecified fracture of fourth metacarpal bone, right hand, initial encounter for closed fracture (principal)
CPT/HCPCS: 73130

== ENCOUNTER 2020-10-18 07:11 | Day surgery (SDC) | payer OTHER, SELFPAY ==
[2020-10-12 13:18] VITALS: BMI 21.1
[2020-10-18] VITALS (13 sets, daily range): BP systolic 109–134; BP diastolic 65–78; PULSE 55–78; RESP 14–18; TEMP 36.6–43; O2SAT 96–98
[2020-10-18 08:01] LABS: Coronavirus 19 IgG Antibody Negative (Negative); Coronavirus 19 IgM Antibody Negative (Negative)
--- NOTE | 2020-10-18 12:23 | HMH.ANESCL ---
[facility] Anesthesia Checklist - Patient Identification Patient Identification: Arm Band - Structural Data Admitted From: Home Planned Operative Procedure/s: ORIF right 4th Metacarpal Consent for Planned Operative Procedure(s) Verified: Yes Verified Documents: Surgical Consent, History and Physical - NPO Status Verified Time NPO: 00:00 - Additional verifications Anesthesia Reactions: No Hx Blood Transfusions: No Blood Transfusion Reaction: No - Airway Assessment C-Spine Mobility Assessed: Yes (mp2) TMJ Mobility Assessed: Yes Dentition: Poor Dentition (no upper dentition. Very poor lower dentition) - Neurological Assessment Level of Consciousness: Awake, Alert - Anesthesia Plan Anesthesia Risk discussed: Yes Anesthesia Plan: Verified ASA Class: II Anesthesia Type: General [facility] History I have reviewed the patient's past medical history: Yes Medical History: Reports:: Hypertension Denies:: Cancer, Diabetes Mellitus Type 1, Diabetes Mellitus Type 2, Internal Pacemaker, MRSA, Seizures *Have you ever received a pneumonia vaccine?: No *Have you received a flu vaccine this season?: No Other Medical History: Denies: Blood Transfusion Reaction Anesthesia experience/problems:: nac Other Surgeries: Yes: Appendectomy, Cardiac Catheterization, Cardiac Surgery, Hernia Repair, Plastic Surgery. No: Pacemaker Amputation: No Fractures: Yes - *Social History Last grade of school completed: 11th or 12th Smoking Status: Current every day smoker Tobacco Type: cigarettes # Packs/Day (cigarettes): 1 #Yrs smoked (if former smoker): 22 Alcohol Intake: never Substance Use Type: denies use *Occupational Status:: employed Housing: house Household Members: significant other *Travel in the last 8 weeks: None Family Hx:: Coronary Artery Disease
--- NOTE | 2020-10-18 14:40 | XR_ITS ---
PROCEDURE: XR HAND RT 2V CLINICAL INDICATION: ORIF IN OR USING C-ARM GUIDANCE. COMPARISON: No exams were available for comparison FINDINGS: Fluoroscopy time: 41 seconds. Dorsal bone plate is placed during the procedure with good alignment with multiple cortical screws. IMPRESSION: Status post ORIF 4th metacarpal fracture with good alignment Dictated by: Nikolas Guardado MD 10/19/2020 18:22 Nikolas Guardado MD in [place] 10/19/2020 18:22
--- NOTE | 2020-10-18 15:23 | P.PN_ITS ---
[facility] Anesthesia Record Part I Intake, IV Amount: 800 Estimated blood loss (mL): 10 Urine output (mL): 0 Blood Products used (#): none Blood Pressure: 122/76 SaO2: 96 Pulse Rate: 78 Respiratory Rate: 18 Temperature: 97.8 F Patient is:: Drowsy, Stable Stable to PACU at:: 15:22
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
--- NOTE | 2020-10-19 07:03 | HMH.ANESII ---
[facility] Anesthesia Record Part II Discharge Time: 15:52 Destination: Surgical Day Care (OP Surgery) PACU nurse assessment reviewed?: Yes Patient Condition:: Good Anesthesia Complications:: None Swallowing reflex intact?: Yes Cyanosis?: No Blood Pressure: 121/73 Pulse Rate: 58 Temperature: 98.3 F Mental Status: Alert & Oriented Pain level:: 3 Nausea and/or vomitting:: None Intake, IV Amount: 40
[2020-10-19 07:05] VITALS: BP 121/73; PULSE 58; TEMP 36.8
== END 2020-10-18 17:00 | disposition home or self-care (01) ==
PROVIDERS: PCP Nurse Practitioner Family; Visit Provider Orthopaedic Surgery
PROC: (CPT 26615; principal; 2020-10-18 12:45)
DX: S62.324A Displaced fracture of shaft of fourth metacarpal bone, right hand, initial encounter for closed fracture (principal); W22.03XA Walked into furniture, initial encounter; Y92.018 Other place in single-family (private) house as the place of occurrence of the external cause; I10 Essential (primary) hypertension; Z72.0 Tobacco use
CPT/HCPCS: 26615; 36415; 73120; 86328; 96374; C1713; C1776; J2405; J3370

== ENCOUNTER → 2020-10-27 11:47 | Outpatient (CLI) | payer OTHER, SELFPAY ==
--- NOTE | 2020-10-27 11:49 | XR_ITS ---
PROCEDURE: XR HAND RT MIN 3V CLINICAL INDICATION: sp orif rt 4th mc COMPARISON: CR XR HAND RT MIN 3V from 10/09/2020 CR XR HAND RT MIN 3V from 10/11/2020 XA XR HAND RT 2V from 10/18/2020 FINDINGS: Status post ORIF 4th metacarpal. Posterior bone plate is present with good alignment of the 4th metacarpal fracture. The joint spaces are well-preserved. No significant degenerative/arthritic changes. No erosive changes evident. Other findings:None. IMPRESSION: Good alignment 4th metacarpal fracture status post ORIF Dictated by: Nikolas Guardado MD 10/27/2020 15:41 Nikolas Guardado MD in [place] 10/27/2020 15:41
== END ==
PROVIDERS: PCP Nurse Practitioner Family; Visit Provider Orthopaedic Surgery
DX: S62.304A Unspecified fracture of fourth metacarpal bone, right hand, initial encounter for closed fracture (principal); Z09 Encounter for follow-up examination after completed treatment for conditions other than malignant neoplasm
CPT/HCPCS: 73130

== ENCOUNTER → 2020-11-10 10:07 | Outpatient (CLI) | payer OTHER, SELFPAY ==
--- NOTE | 2020-11-10 10:12 | XR_ITS ---
PROCEDURE: XR HAND RT MIN 3V CLINICAL INDICATION: sp ORIF RT 4TH mc sx: 10/18/2020 COMPARISON: No exams were available for comparison FINDINGS: There is metallic brackets with multiple threaded screws transfixing the fracture mid shaft 4th metacarpal in essentially anatomic alignment. The remaining metacarpals and phalanges appear intact. IMPRESSION: Satisfactory ORIF fracture 4th metacarpal Dictated by: Dr. Aneesh Guillen MD 11/10/2020 10:47 Dr. Aneesh Guillen MD in [place] 11/10/2020 10:47
== END ==
PROVIDERS: PCP Nurse Practitioner Family; Visit Provider Orthopaedic Surgery
DX: S62.304A Unspecified fracture of fourth metacarpal bone, right hand, initial encounter for closed fracture (principal); Z09 Encounter for follow-up examination after completed treatment for conditions other than malignant neoplasm
CPT/HCPCS: 73130

== ENCOUNTER → 2020-12-08 13:45 | Outpatient (CLI) | payer OTHER, SELFPAY ==
--- NOTE | 2020-12-08 13:48 | XR_ITS ---
PROCEDURE: XR HAND RT MIN 3V CLINICAL INDICATION: sp ORIF RT 4th mc, dos 10/18/2020 Follow-up ORIF COMPARISON: CR XR HAND RT MIN 3V from 10/09/2020 CR XR HAND RT MIN 3V from 10/11/2020 CR XR HAND RT MIN 3V from 10/27/2020 CR XR HAND RT MIN 3V from 11/10/2020 FINDINGS: There has been prior ORIF the 4th metacarpal with dorsal bone plate. Callus formation is developing at the fracture site. There is some minimal anterior angulation of the distal fracture fragment. This appears slightly greater when compared to the previous exam there is minimal dorsal displacement of the distal fracture fragment. The joint spaces are well-preserved. No significant degenerative/arthritic changes. No erosive changes evident. Other findings:None. IMPRESSION: Status post ORIF healing fracture 4th metacarpal with minimal anterior angulation and dorsal displacement of the distal fracture fragment Dictated by: Nikolas Guardado MD 12/08/2020 15:31 Nikolas Guardado MD in [place] 12/08/2020 15:31
== END ==
PROVIDERS: PCP Nurse Practitioner Family; Visit Provider Orthopaedic Surgery
DX: S62.308A Unspecified fracture of other metacarpal bone, initial encounter for closed fracture (principal); Z09 Encounter for follow-up examination after completed treatment for conditions other than malignant neoplasm
CPT/HCPCS: 73130

== ENCOUNTER → 2021-01-25 08:23 | Outpatient (CLI) | payer OTHER, SELFPAY ==
--- NOTE | 2021-01-25 08:30 | XR_ITS ---
PROCEDURE: XR HAND RT MIN 3V CLINICAL INDICATION: sp ORIF RT 4th mc, dos 10/18/20 Follow-up surgery COMPARISON: CR XR HAND RT MIN 3V from 10/11/2020 CR XR HAND RT MIN 3V from 10/27/2020 CR XR HAND RT MIN 3V from 11/10/2020 CR XR HAND RT MIN 3V from 12/08/2020 FINDINGS: Status post ORIF mid shaft fracture of the 4th metacarpal. There is good alignment with developing callus formation. There is some minimal anterior angulation of the distal fracture fragment. The posterior bone plate is slightly bent with the distal aspect slightly angled anteriorly not significantly changed. IMPRESSION: Status post ORIF 4th metacarpal fracture as described above Dictated by: Nikolas Guardado MD 01/25/2021 17:45 Nikolas Guardado MD in [place] 01/25/2021 17:45
== END ==
PROVIDERS: PCP Nurse Practitioner Family; Visit Provider Orthopaedic Surgery
DX: Z09 Encounter for follow-up examination after completed treatment for conditions other than malignant neoplasm (principal); S62.324D Displaced fracture of shaft of fourth metacarpal bone, right hand, subsequent encounter for fracture with routine healing
CPT/HCPCS: 73130

== ENCOUNTER → 2021-07-20 16:43 | Outpatient (CLI) | payer OTHER, SELFPAY ==
--- NOTE | 2021-07-20 16:49 | XR_ITS ---
PROCEDURE INFORMATION: Exam: XR Lumbosacral Spine Exam date and time: 07/20/2021 4:49 PM Age: 41 years old Clinical indication: Low back pain; Additional info: Back pain TECHNIQUE: Imaging protocol: XR of the lumbosacral spine. Views: 2 or 3 views. COMPARISON: CT ABDOMEN PELVIS W CON 10/07/2020 10:46 AM FINDINGS: Bones/joints: No fracture, subluxation or focal bony lesion. Moderate spondylosis T12-L1 and L1-L2. Soft tissues: Unremarkable. IMPRESSION: 1. No fracture, subluxation or focal bony lesion. 2. Moderate spondylosis T12-L1 and L1-L2.
--- NOTE | 2021-07-20 16:49 | XR_ITS ---
PROCEDURE INFORMATION: Exam: XR Right Hip Exam date and time: 07/20/2021 4:49 PM Age: 41 years old Clinical indication: Hip pain; Right hip TECHNIQUE: Imaging protocol: XR Right hip. Views: 2 or 3 views hip with pelvis when performed. COMPARISON: CT ABDOMEN PELVIS W CON 10/07/2020 10:46 AM FINDINGS: Bones/joints: Unremarkable right hip. Soft tissues: Unremarkable. IMPRESSION: Unremarkable right hip.
== END ==
PROVIDERS: PCP Nurse Practitioner Family; Visit Provider Nurse Practitioner Family
DX: M25.551 Pain in right hip (principal); M54.9 Dorsalgia, unspecified; M54.5 Low back pain
CPT/HCPCS: 72100; 73502

== ENCOUNTER 2021-08-10 16:49 | Outpatient (RCR) | payer OTHER, SELFPAY ==
--- NOTE | 2021-08-10 18:09 | HMH.PTOPEV ---
PT Outpatient Evaluation Rehab PT Outpatient Evaluation Start: 08/10/21 17:57 Freq: Status: Active Protocol: Document 08/10/21 17:59 JOSSUELISA (Rec: 08/10/21 18:09 JOSSUELISA [id number]) Electronically Signed By Chad Mukherjee, MARK 08/10/21 17:59 Outpatient Therapy Subjective History Subjective History This is the initial Physical Therapy evalaution for Richard Blood. Pt is a 41 y/o male referred to PT for c/o LBP and R hip pain. Pt reports he has had back pain all his life but notes this bout began ~ 2 years ago, and had increase ~ 7-8 months ago. Pt reports insidious onsetw/ no known trauma. Pt does report he had cervical fusion ~ 1 year ago. Pt states he began having R hip pain ~ 4-5 months ago. Pt reports pain feels like its in the joint and points to the front of the hip. Chief Complaint Pain Symptom Type Throb,Sharp,Stabbing Symptoms Relieved By Rest/Positioning Symptoms Aggravated By Sitting,Standing,Bending/ Stooping,Physical Activity, Lifting Prior Functional Limitations None Current Functional Limitations Lifting,Housework,Standing, Sitting,Recreation Activity, Bending/Stooping Symptom Description Constant and Continuous Level of pain today (0-10) 4 Pain scale - at its best (0-10) 2 Pain scale - at its worst (0-10) 10 Lumbopelvic Eval Posture Lumbar Spine Posture Standing Position Flattened Assistive device Assistive Devices None / NA Palapation tenderness bilateral thoracic spinal tenderness No lumbar spinal tenderness Yes paraspinal tenderness Yes buttock tenderness Yes Lumbar/Sacral Palpation Findings Tenderness,Spasm,Trigger Point ,Muscle Guarding Accessory Movement L2 bilateral L3 bilateral L4 bilateral L5 bilateral Range of Motion Lumbar Spine ROM Reason Not Measured Within Functional Limits Special Tests Lumbar Spine Screen Negative Forward Bending Test- Standing Negative Left,Negative Right Forward Bending Test- Sitting Negative Left,Negative Right Hip Scouring
== END 2021-08-10 16:55 | disposition home or self-care (01) ==
LOC: PT 16:49
PROVIDERS: PCP Nurse Practitioner Family; Visit Provider Nurse Practitioner Family
DX: M54.5 Low back pain (principal); M25.551 Pain in right hip
CPT/HCPCS: 97163

== ENCOUNTER → 2021-08-17 14:15 | Outpatient (CLI) | payer OTHER, SELFPAY ==
--- NOTE | 2021-08-17 14:15 | CT_ITS ---
PROCEDURE: CT HIP RT WO CON CLINICAL HISTORY: hip pain COMPARISON: CT CT ABDOMEN PELVIS W CON from 10/07/2020 CR XR HIP RT 2-3V W/PELVIS from 07/20/2021 TECHNIQUE: Axial images obtained with sagittal and coronal reformats. All CT scans at the facility use one or more dose reduction, viz: automated exposure control, ma/kV adjustment per patient size (including targeted exams where dose is matched to indication, i.e. head), or iterative reconstruction technique. FINDINGS: No fracture or dislocation. There is slight decrease in the joint space superiorly which may represent early osteoarthritic change. No osteophyte formation or osteosclerosis. A 3 mm sclerotic focus is present in the greater trochanter inferiorly consistent with a small bone island. No soft tissue mass apparent. No abnormal fluid collections minimal periarticular calcification noted along the lateral aspect of the acetabulum. No bony destructive process evident. IMPRESSION: No acute finding. Slight decrease in the joint space superiorly which may represent early osteoarthritic change with minimal periarticular calcification. Dictated by: Nikolas Guardado MD 08/18/2021 08:35 Nikolas Guardado MD in [place] 08/18/2021 08:35
--- NOTE | 2021-08-17 16:01 | MR_ITS ---
PROCEDURE: MR LUMBAR SPINE WO CON CLINICAL INDICATION: back pain Low back pain with right hip pain COMPARISON: MR MR CERVICAL SPINE WO CON from 08/06/2020 CR XR LUMBAR SPINE 2-3V from 07/20/2021 TECHNIQUE: Standard multiplanar multiecho sequences are performed without contrast. 3-D MIP and myelographic images are also rendered and reviewed FINDINGS: There is normal alignment. The spinal cord ends at the L1 level. T12-L1: Degenerative disc disease with anterior bulging disc with associated endplate osteophytes. L1-L2: Degenerative disc disease with anterior osteophytes and associated bulging disc. L2-L3: Unremarkable. L3-L4: Unremarkable. L4-5: Mild facet and ligamentum hypertrophy with mild bilateral foraminal narrowing slightly greater on the right. L5-S1: Minimal bulging disc. Mild right-sided foraminal narrowing. No extruded herniated disc or bony canal stenosis. No fracture or dislocation. Type 1 endplate changes are present along the left aspect and inferior aspect of L1. A Schmorl's node is present at this region. IMPRESSION: Lumbar spondylosis as detailed above. Please see above for detailed description. No extruded herniated disc or bony canal stenosis. No fracture or dislocation. Type 1 endplate changes are present along the left aspect and inferior aspect of L1. A Schmorl's node is present at this region Dictated by: Nikolas Guardado MD 08/18/2021 07:24 Nikolas Guardado MD in [place] 08/18/2021 07:24
== END ==
PROVIDERS: PCP Nurse Practitioner Family; Visit Provider Nurse Practitioner Family
DX: M25.551 Pain in right hip (principal); M87.051 Idiopathic aseptic necrosis of right femur; M54.9 Dorsalgia, unspecified
CPT/HCPCS: 72148; 73700; 76376

== ENCOUNTER → 2021-09-14 18:46 | Outpatient (CLI) | payer OTHER, SELFPAY ==
[2021-09-14 20:23] LABS: Barbiturates Screen,Urine Negative ng/ml (<200)
[2021-09-14 20:25] LABS: Amphetamine/Metha Screen,Urine Negative ng/ml (<1000); Benzodiazepines Screen,Urine Negative ng/ml (<200)
[2021-09-14 20:26] LABS: Cannabinoid Screen,Urine Positive ng/ml (<50)
[2021-09-14 20:27] LABS: Cocaine Screen,Urine Negative ng/ml (<300); Methadone Screen,Urine Negative ng/ml (<300)
[2021-09-14 20:28] LABS: Opiate Screen,Urine Negative ng/ml (<300); Phencyclidine Screen,Urine Negative ng/ml (<25)
== END ==
PROVIDERS: Visit Provider Nurse Practitioner Family
DX: M54.9 Dorsalgia, unspecified (principal)
CPT/HCPCS: 80305

== ENCOUNTER 2021-09-17 11:21 | Emergency (ER) | payer OTHER, SELFPAY ==
[2021-09-17 11:25] VITALS: BP 140/73; PULSE 87; RESP 19; TEMP 37.1; O2SAT 98; BMI 22.9
--- NOTE | 2021-09-17 11:55 | HMH.EDUTC ---
[facility] [place] Clinical Impression: Cellulitis Qualifiers: Site of cellulitis: extremity Site of cellulitis of extremity: lower extremity Laterality: left Qualified Code(s): L03.116 - Cellulitis of left lower limb Disposition: Home, Self-Care Condition on Discharge: Good Instructions: Cellulitis Additional Instructions: monitor for worsting of redness and swelling follow up with pcp keep area clean and dry if worsen return or be seen in ed Prescriptions: Sulfamethoxazole/Trimethoprim [Bactrim DS tablet] 1 each PO BID 10 Days #20 tab Transmission Status: Pending to [facility] Referrals: Kelli Merida APRN [Primary Care Provider] - Time of Disposition: 12:13 Medical Decision Making - [place] Inquiry Pt receiving controlled substance: No Vital Signs: 09/17/21 11:25 Temperature 98.8 F Temperature Source Oral Pulse Rate [Right Brachial] 87 Respiratory Rate 19 Blood Pressure [Right Arm] 140/73 Blood Pressure Mean [Right Arm] 95 Blood Pressure Source [Right Arm] Automatic Cuff Blood Pressure Position [Right Arm] Sitting 02 Sat by Pulse Oximetry 98 Oxygen Delivery Method Room Air [facility] [place] - General Chief complaint: Urgent Treatment Center Stated complaint: AO [id number] left leg injury,home accident Time Seen by Provider: 09/17/21 11:55 Mode of Arrival: Ambulatory Source of Information: Patient Limitations: No Limitations Description of Symptoms (Recalled from Triage Doc. by RN): PATIENT REPORTS HE WAS REPAIRING A FENCE AND WAS HIT BY A NAIL TO LLE. REDNESS NOTED TO AREA HEENT Symptoms (Recalled from RN notes): No Resp Symptoms (Recalled from RN notes): No Skin Symptoms (Recalled from RN notes): Yes MS Symptoms (Recalled from RN notes): No Functional Status (Recalled from RN notes): WNL - History of Present Illness Provider Complaint: 41 yr old male presents for a sore and leg swollen. Pt states on he was repairing fence and the board with a nail in in hit him in left lower leg. today swollen and red. last tdap 11/01/19 - Related Data Home Medications Medication Instructions Recorded Confirmed Metoprolol Succinate [Metoprolol 25 mg PO DAILY 10/12/20 09/14/21 Succinate 25mg Tablet*] Previous Rx's Medication Instructions Recorded albuterol sulfate 90 mcg/actuation 1 inh INHALATION QID PRN #6.7 g NS 08/25/20 aerosol inhaler cyclobenzaprine 5 mg tablet 5 mg PO HS #30 tab 09/14/21 hydrocodone 5 mg-acetaminophen 325 1 tab PO BID PRN #6 tab 09/14/21 mg tablet Sulfamethoxazole/Trimethoprim 1 each PO BID 10 Days #20 tab 09/17/21 [Bactrim DS tablet] Allergies Allergy/AdvReac Type Severity Reaction Status Date / Time amoxicillin Allergy Mild Rash Verified 09/14/21 16:16 oxycodone Allergy rash, hives Verified 09/14/21 16:16 Penicillins Allergy Unknown Verified 09/14/21 16:16 allergy reaction - Worker's Comp Is this a Worker's Comp case?: No [facility] History - Hepatitis A Screen Drug use history?: No High risk sexual behaviors?: No History of sexually transmitted infection?: No Currently employed?: No Childcare worker?: No Do you have indoor plumbing?: Yes Do you have electricity?: Yes Attestation statement:: This patient has been screened for Hepatitis A risk factors. I have reviewed the patient's past medical history: Yes Medical History: Reports:: Hypertension Denies:: Cancer, Diabetes Mellitus Type 1, Diabetes Mellitus Type 2, Internal Pacemaker, MRSA, Seizures Other Medical History: Denies: Blood Transfusion Reaction Laterality Cases: Right: Other Other Surgeries: Yes: Appendectomy, Cardiac Catheterization, Cardiac Surgery, Hernia Repair, Plastic Surgery, Other. No: Pacemaker Amputation: No Fractures: Yes Comment: neck surgery - Social History Smoking Status: Current every day smoker Tobacco Type: cigarettes # Packs/Day (cigarettes): 22 #Yrs smoked (if former smoker): 22 Alcohol Intake: never Substance Use Type: denies use Occupation
[2021-09-17 12:11] VITALS: BP 140/73; PULSE 87; RESP 19; TEMP 37.1; O2SAT 98
== END 2021-09-17 12:21 | disposition home or self-care (01) ==
PROVIDERS: Emergency Provider Nurse Practitioner Family; PCP Nurse Practitioner Family
DX: L03.116 Cellulitis of left lower limb (principal); I10 Essential (primary) hypertension
CPT/HCPCS: 99202; G0463

== ENCOUNTER → 2021-10-20 15:38 | Outpatient (POV) | payer OTHER, SELFPAY ==
[2021-10-20 15:57] VITALS: BP 132/66; PULSE 73; RESP 18; O2SAT 98; BMI 22.4
--- NOTE | 2021-10-24 08:40 | HMH.PMCON ---
Assessment and Plan (1) Degenerative joint disease of cervical spine Status: Chronic Category: Medical Code(s): M47.812 - Spondylosis without myelopathy or radiculopathy, cervical region (2) Cervical radiculopathy Status: Chronic Category: Medical Code(s): M54.12 - Radiculopathy, cervical region (3) Bilateral sacroiliitis Status: Chronic Category: Medical Code(s): M46.1 - Sacroiliitis, not elsewhere classified (4) Low back pain Status: Chronic Category: Medical Code(s): M54.50 - Low back pain, unspecified - Assessment and plan all Dx Assessment and Plan for all problems:: Patient presents today for complaints of neck and low back pain. He does report that his neck pain is chronic in nature and tolerable at the moment. He is having excruciating pain to his low back area. He would like to begin treatment for his low back patient does have a positive Stephanie's, distraction, Tracy's, compression test scheduled bilateral. He will continue with home stretching and anti-inflammatories. Possible side effects of corticosteroids have been discussed with the patient. Risks and benefits of the procedure have been explained to the patient. Patient would like to proceed with the procedure. Patient has been instructed to contact the clinic with any concerns before the next appointment. Dr. Walters has reviewed this note and agrees with this plan of care. This note was dictated using voice recognition software and make contain errors or omissions. HPI - Data of Consult Patient: new to practice Consult date: 10/24/21 Requesting Physician: Gaby Kate APRN - Consult Narrative Reason for consult: Low back pain, neck pain History of present illness: Mr. Blood is a 41 year old male who presents today for consultation for chronic low back pain. Patient says he also has chronic neck pain. He says that he has had many years of neck pain that is chronic in nature for him. His greatest complaint today is low back pain with radiation into bilateral lower extremities as well as bilateral hips and groin. He describes the pain as excruciating and made worse with any activity. He says that standing, walking, and extending it was makes the pain worse. He also reports to be having bilateral buttock pain. Lying flat does give the patient relief. He does have numbness and tingling into his upper extremities periodically. This is chronic as well in nature for the patient. He has tried physical therapy for more than 6 weeks and continues with home stretching. He has also tried anti-inflammatories with minimal relief. He does have an MRI of his cervical spine. Patient is having difficulty sitting the chair for more than 3 to 5 minutes without having to reposition often. He is in notable pain during conversation today. He does rate his pain a 7 or an 8 out of 10 today. CC: Gaby Kate APRN [facility] History I have reviewed the patient's past medical history: Yes Medical History: Reports:: Hypertension Denies:: Cancer, Diabetes Mellitus Type 1, Diabetes Mellitus Type 2, Internal Pacemaker, MRSA, Seizures *Have you ever received a pneumonia vaccine?: No *Have you received a flu vaccine this season?: No Other Medical History: Denies: Blood Transfusion Reaction Laterality Cases: Right: Other Other Surgeries: Yes: Appendectomy, Cardiac Catheterization, Cardiac Surgery, Hernia Repair, Plastic Surgery, Other. No: Pacemaker Amputation: No Fractures: Yes - *Social History Smoking Status: Current every day smoker Tobacco Type: cigarettes # Packs/Day (cigarettes): 22 #Yrs smoked (if former smoker): 22 Alcohol Intake: never Substance Use Type: denies use *Occupational Status:: unemployed Housing: house Household Members: friend(s) *Travel in the last 8 weeks: None Family Hx:: Coronary Artery Disease Review of Systems - Review of Systems Review of Systems General: No recent weight changes, no fever, no sleep dist
== END ==
PROVIDERS: Visit Provider Clinical Nurse Specialist Family Health
DX: M47.892 Other spondylosis, cervical region (principal); M54.12 Radiculopathy, cervical region; M46.1 Sacroiliitis, not elsewhere classified; M54.50 Low back pain, unspecified
CPT/HCPCS: 99202; G0463

== ENCOUNTER 2021-10-20 17:00 | Outpatient (RCR) | payer OTHER, SELFPAY | END 2021-10-20 17:05 | disposition home or self-care (01) | LOC: PT 17:00 | PROVIDERS: PCP Nurse Practitioner Family; Visit Provider Nurse Practitioner Family | DX: M54.9 Dorsalgia, unspecified (principal); G89.29 Other chronic pain | CPT/HCPCS: 97010; 97012; 97014; 97110; 97163; G0283 ==

== ENCOUNTER 2021-11-04 11:08 | Day surgery (SDC) | payer OTHER, SELFPAY ==
[2021-11-04 11:15] VITALS: BP 113/58; PULSE 62; RESP 18; TEMP 36.7; O2SAT 98; BMI 22.4
--- NOTE | 2021-11-04 11:52 | HMH.PMPROC ---
- Procedure Date: 11/04/21 Time: 11:52 Anesthesiologist:: Valencia Cruz MD Complications:: None Pre-procedure Diagnosis:: Bilateral sacroiliitis, chronic low back pain, bilateral hip pain Post-procedure Diagnosis:: Same Indications for Procedure:: Patient is a very pleasant 41-year-old white male who presents today with chronic low back pain and bilateral hip pain related to the above diagnosis. He has tried and failed conservative treatment including oral pain medications and home stretching program for greater than 6 weeks. He has trialed NSAIDs with minimal pain relief. He rates his pain as a 7 out of 10 today. The plan for today is for patient to undergo bilateral SI joint injections under fluoroscopy #1. Procedure Details:: B/L SI joint injection under fluoroscopy Informed consent was obtained and the risks and benefits of the procedure was explained to the patient. The patient was taken to the procedure room and placed prone on the procedure table. The patient was prepped using ChloraPrep. The skin and subcutaneous tissues overlying the SI joints were anesthetized using lidocaine. I placed a 22-gauge needle first in the left SI joint and second in the right SI joint. Needle placement was confirmed with dye. After this we injected 5 mL bupivacaine 0.25% and Depo-Medrol 40 mg into each SI joint. Patient tolerated the procedure well with no complication. Plan and Disposition:: We will follow-up with this patient in 2 weeks. Will reevaluate pain symptoms at that time.
[2021-11-04 12:02] VITALS: BP 110/62; PULSE 70; RESP 18; O2SAT 97
[2021-11-04 12:03] VITALS: PULSE 62; RESP 18; O2SAT 98
[2021-11-04 12:13] VITALS: BP 106/48; PULSE 58; RESP 20; O2SAT 97
== END 2021-11-04 12:16 | disposition home or self-care (01) ==
LOC: SC.PAINP 11:09
PROVIDERS: PCP Nurse Practitioner Family; Visit Provider Anesthesiology Pain Medicine
DX: M46.1 Sacroiliitis, not elsewhere classified (principal); M54.50 Low back pain, unspecified; M25.551 Pain in right hip; M25.552 Pain in left hip; G89.29 Other chronic pain; I10 Essential (primary) hypertension; Z88.0 Allergy status to penicillin; Z88.1 Allergy status to other antibiotic agents; Z79.899 Other long term (current) drug therapy
CPT/HCPCS: 27096; G0260; J1040; Q9966

== ENCOUNTER → 2021-11-21 11:00 | Outpatient (POV) | payer OTHER, SELFPAY ==
[2021-11-21 11:20] VITALS: BP 121/79; PULSE 60; RESP 18; O2SAT 98; BMI 21.7
--- NOTE | 2021-11-21 11:37 | HMH.PAINSOAP ---
[facility] Pain Management SOAP Note Subjective:: Patient is a 41-year-old white male who presents today for follow-up after bilateral SI joint injections. Patient says he got no relief with the injection. He says his pain was made worse 3 days after the injection. He is continuing to have pain from the neck to the low back area with radiation into bilateral hips. He is also having pain down his right arm. He is not interested in further injective therapy. Per MRI he does have mild spondylosis. We did discuss injections, however, he has deferred at this time. He rates his pain a 9 out of 10 today. He does continue with home stretching. Review of Systems General: No recent weight changes, no fever, no sleep disturbances Respiratory: No cough, no shortness of air, no recurring pulmonary infections Cardiovascular/peripheral vascular: No chest pain, no palpitations, no edema, no shortness of breath Gastrointestinal: No new onset incontinence, normal bowel movements reported Genitourinary: No new onset incontinence Musculoskeletal: Neck pain with radiation into right upper extremity, low back pain with radiation into bilateral hips and lower extremities Psychiatric: [Normal mood/affect] Neurological: [Denies weakness in extremities], [denies balance issues] Objective:: Physical exam General: Alert and oriented x3, no acute distress, pleasant and cooperative Lungs: Respirations even and unlabored, symmetrical chest expansion Eyes: PERRL Musculoskeletal: Flexion and extension of cervical and lumbar [spine] somewhat guarded secondary to pain, [antalgic gait noted] Neurological: Speech clear, no gross sensory deficit Assessment:: Degenerative disc disease lumbar spine with lumbar facet arthropathy and lumbar spondylosis, neck pain, cervical radiculopathy symptoms, bilateral hip pain Plan:: We will order the patient prednisone 20 mg 1 tablet p.o. twice daily for 5 days. We will also order the patient meloxicam 7.5 mg 1 tablet p.o. daily. We did discuss his options in the clinic. Given the patient's decision to not proceed with any further injective therapy, he may be a candidate for intrathecal therapy. He has had surgical intervention to his spine in the past and due to pain.cervical, thoracic, and lumbar spine, he is likely not a candidate for SCS therapy. He was given educational information today regarding intrathecal therapy. He will get a month of medication and will be seen in the clinic in 1 month for further evaluation to see if medication is working and to just a further plan of care. Risks and benefits of the procedure have been explained to the patient. Patient would like to proceed with the procedure. Patient has been instructed to contact the clinic with any concerns before the next appointment. Dr. Walters has reviewed this note and agrees with this plan of care. This note was dictated using voice recognition software and make contain errors or omissions. [facility] History I have reviewed the patient's past medical history: Yes Medical History: Reports:: Hypertension Denies:: Cancer, Diabetes Mellitus Type 1, Diabetes Mellitus Type 2, Internal Pacemaker, MRSA, Seizures *Have you ever received a pneumonia vaccine?: No *Have you received a flu vaccine this season?: No Other Medical History: Denies: Blood Transfusion Reaction Laterality Cases: Right: Other Other Surgeries: Yes: Appendectomy, Cardiac Catheterization, Cardiac Surgery, Hernia Repair, Plastic Surgery, Other. No: Pacemaker Amputation: No Fractures: Yes - *Social History Smoking Status: Current every day smoker Tobacco Type: cigarettes # Packs/Day (cigarettes): 1 #Yrs smoked (if former smoker): 22 Alcohol Intake: never Substance Use Type: denies use *Occupational Status:: unemployed Housing: house Household Members: friend(s) *Travel in the last 8 weeks: None Family Hx:: Coronary Artery Disease
== END ==
PROVIDERS: Visit Provider Clinical Nurse Specialist Family Health
DX: M51.36 Other intervertebral disc degeneration, lumbar region (principal); M47.816 Spondylosis without myelopathy or radiculopathy, lumbar region; M54.06 Panniculitis affecting regions of neck and back, lumbar region; M54.12 Radiculopathy, cervical region; M25.551 Pain in right hip; M25.552 Pain in left hip
CPT/HCPCS: 99212; G0463

== ENCOUNTER → 2022-02-27 08:25 | Outpatient (POV) | payer OTHER, SELFPAY ==
[2022-02-27 08:36] VITALS: BP 149/77; PULSE 72; RESP 18; TEMP 37.1; O2SAT 97; BMI 22.4
--- NOTE | 2022-02-27 09:30 | HMH.PAINSOAP ---
[facility] Pain Management SOAP Note Subjective:: Patient is a pleasant 42-year-old male who presents today for follow-up. Patient is currently being treated for degenerative disc disease of the cervical spine with cervical radiculopathy symptoms, chronic neck pain. Patient also had a neck surgery in 2019 with . We are currently managing this patient with meloxicam 7.5 mg daily and injective therapy. When we last saw this patient, we started him on some prednisone 20 mg for 5 days which helped minimally. We also did a bilateral SI injection. Patient states that this made his hip pain worse. Today, patient is complaining of low back pain that radiates towards his thoracic spine. He does say that he gets radicular pains to bilateral lower extremities intermittently as well. Denies any loss of bowel and bladder functions. Denies any recent falls or traumas. Patient has been doing physical therapy in the last few months. He goes 1-2 times a week. He states that this is worsening his pain. Patient cannot tolerate any lumbar flexion, extension, and rotation. He states that the only thing that has helped him recently is the [place] [address] Hamm started him on. Rates pain today as 6 out of 10. [facility] #[id number] with a morphine equivalent of 0. Review of Systems: General: No recent weight changes, no fever, no sleep disturbances Respiratory: No cough, no shortness of air, no recurring pulmonary infections Cardiovascular/peripheral vascular: No chest pain, no palpitations, no edema, no shortness of breath Gastrointestinal: No new onset incontinence, normal bowel movements reported Genitourinary: No new onset incontinence Musculoskeletal: Neck pain, low back pain, bilateral hip pain Psychiatric: [Normal mood/affect] Neurological: [Denies weakness in extremities], [denies balance issues] Objective:: Physical Exam: General: Alert and oriented x3, no acute distress, pleasant and cooperative, [on room air] Lungs: Respirations even and unlabored, symmetrical chest expansion Eyes: PERRL Musculoskeletal: Flexion and extension of cervical and lumbar [spine] somewhat guarded secondary to pain, [antalgic gait noted]; patient is tender to palpation to bilateral lateral hips. Neurological: Speech clear, no gross sensory deficit Assessment:: Degenerative disc disease of the cervical and lumbar spine with cervical lumbar radiculopathy symptoms. Post neck surgery Bilateral hip pain Plan:: IMAGING Ordering Physician: Kelli Merida APRN Date of Service: 08/17/21 Procedure(s): MR lumbar spine wo con Accession Number(s): [id number] cc: Nikolas Guardado MD; Kelli Merida APRN~ PROCEDURE: MR LUMBAR SPINE WO CON CLINICAL INDICATION: back pain Low back pain with right hip pain COMPARISON: MR MR CERVICAL SPINE WO CON from 08/06/2020 CR XR LUMBAR SPINE 2-3V from 07/20/2021 TECHNIQUE: Standard multiplanar multiecho sequences are performed without contrast. 3-D MIP and myelographic images are also rendered and reviewed FINDINGS: There is normal alignment. The spinal cord ends at the L1 level. T12-L1: Degenerative disc disease with anterior bulging disc with associated endplate osteophytes. L1-L2: Degenerative disc disease with anterior osteophytes and associated bulging disc. L2-L3: Unremarkable. L3-L4: Unremarkable. L4-5: Mild facet and ligamentum hypertrophy with mild bilateral foraminal narrowing slightly greater on the right. L5-S1: Minimal bulging disc. Mild right-sided foraminal narrowing. No extruded herniated disc or bony canal stenosis. No fracture or dislocation. Type 1 endplate changes are present along the left aspect and inferior aspect of L1. A Schmorl's node is present at this region. IMPRESSION: Lumbar spondylosis as detailed above. Please see above for detailed description. No extruded herniated disc or bony canal stenosis. No fracture or dislocation. Type 1 endplate changes are prese
== END ==
PROVIDERS: Visit Provider Student in an Organized Health Care Education/Training Program
DX: M50.10 Cervical disc disorder with radiculopathy, unspecified cervical region (principal); M51.16 Intervertebral disc disorders with radiculopathy, lumbar region; M25.551 Pain in right hip; M25.552 Pain in left hip
CPT/HCPCS: 99212; G0463

== ENCOUNTER → 2022-03-07 11:51 | Outpatient (CLI) | payer OTHER, SELFPAY ==
[2022-03-07 20:17] LABS: Amphetamine/Metha Screen,Urine Negative ng/ml (<1000)
[2022-03-07 20:18] LABS: Barbiturates Screen,Urine Negative ng/ml (<200)
[2022-03-07 20:20] LABS: Benzodiazepines Screen,Urine Negative ng/ml (<200); Cannabinoid Screen,Urine Positive ng/ml (<50)
[2022-03-07 20:21] LABS: Cocaine Screen,Urine Negative ng/ml (<300)
[2022-03-07 20:22] LABS: Methadone Screen,Urine Negative ng/ml (<300); Opiate Screen,Urine Negative ng/ml (<300)
[2022-03-07 20:23] LABS: Phencyclidine Screen,Urine Negative ng/ml (<25)
== END ==
PROVIDERS: PCP Emergency Medicine; Visit Provider Emergency Medicine
DX: M54.50 Low back pain, unspecified (principal)
CPT/HCPCS: 80305

== ENCOUNTER → 2022-03-16 07:55 | Outpatient (POV) | payer OTHER, SELFPAY ==
[2022-03-16 08:29] VITALS: BP 134/59; PULSE 57; RESP 18; TEMP 36.7; O2SAT 100; BMI 22.4
--- NOTE | 2022-03-16 08:50 | P.CONS_ITS ---
[facility] Pain Management SOAP Note Subjective:: Patient is a pleasant 42-year-old male who presents today for follow-up. Patient is currently being treated for degenerative disc disease of the cervical with cervical radiculopathy symptoms, chronic neck pain, chronic low back pain, bilateral hip pain. Patient had a neck surgery in 2019 with . We have been managing this patient with injective therapy that provides temporary relief. I did discuss with the patient that he would be a good intrathecal pain pump or spinal cord stimulator candidate based on his surgical history and presentation. Patient is a bit hesitant in moving forward with any of these interventions. He was started on [place] 5 mg 3 times a day by Dr. Hamm last month. Patient states that this medication is not helping him. When I last saw this patient, I changed him from meloxicam 7.5 mg daily to diclofenac 75 mg twice a day. Patient states that this medication has helped him significantly. Denies any side effects with this medication. Patient states that he has been able to sleep more. Rates pain today as 6 out of 10. [facility] #[id number] with an active morphine equivalent of 0. Review of Systems: General: No recent weight changes, no fever, no sleep disturbances Respiratory: No cough, no shortness of air, no recurring pulmonary infections Cardiovascular/peripheral vascular: No chest pain, no palpitations, no edema, no shortness of breath Gastrointestinal: No new onset incontinence, normal bowel movements reported Genitourinary: No new onset incontinence Musculoskeletal: Neck pain, low back pain Psychiatric: [Normal mood/affect] Neurological: [Denies weakness in extremities], [denies balance issues] Objective:: Physical Exam: General: Alert and oriented x3, no acute distress, pleasant and cooperative, [on room air] Lungs: Respirations even and unlabored, symmetrical chest expansion Eyes: PERRL Musculoskeletal: Flexion and extension of cervical and lumbar [spine] somewhat guarded secondary to pain, [antalgic gait noted] Neurological: Speech clear, no gross sensory deficit Assessment:: Degenerative disc disease of the cervical and lumbar spine with cervical lumbar radiculopathy symptoms Bilateral hip pain Plan:: Patient is doing significantly well with diclofenac 75 mg twice a day. Patient states that his primary care provider is continuing this medication. We will follow-up with this patient in 6 months. Patient has been instructed to contact the clinic with any concerns before the next appointment. Dr. Walters has reviewed this note and agrees with this plan of care. This note was dictated using voice recognition software and make contain errors or omissions. [facility] History Medical History: Reports:: Hypertension Denies:: Cancer, Diabetes Mellitus Type 1, Diabetes Mellitus Type 2, Internal Pacemaker, MRSA, Seizures *Have you ever received a pneumonia vaccine?: No *Have you received a flu vaccine this season?: No Other Medical History: Denies: Blood Transfusion Reaction Laterality Cases: Right: Other Other Surgeries: Yes: Appendectomy, Cardiac Catheterization, Cardiac Surgery, Hernia Repair, Plastic Surgery, Other. No: Pacemaker Amputation: No Fractures: Yes - *Social History Smoking Status: Current every day smoker Tobacco Type: cigarettes # Packs/Day (cigarettes): 1 #Yrs smoked (if former smoker): 22 Alcohol Intake: never Substance Use Type: denies use *Occupational Status:: unemployed Housing: house Household Members: friend(s) *Travel in the last 8 weeks: None Family Hx:: Coronary Artery Disease
== END ==
PROVIDERS: Visit Provider Student in an Organized Health Care Education/Training Program
DX: M50.10 Cervical disc disorder with radiculopathy, unspecified cervical region (principal); M25.551 Pain in right hip; M25.552 Pain in left hip
CPT/HCPCS: 99212; G0463

== ENCOUNTER → 2022-05-02 10:57 | Outpatient (CLI) | payer OTHER, SELFPAY ==
[2022-05-02 14:11] LABS: Amphetamine/Metha Screen,Urine Negative ng/ml (<1000)
[2022-05-02 14:12] LABS: Barbiturates Screen,Urine Negative ng/ml (<200)
[2022-05-02 14:14] LABS: Benzodiazepines Screen,Urine Negative ng/ml (<200); Cannabinoid Screen,Urine Positive ng/ml (<50)
[2022-05-02 14:15] LABS: Cocaine Screen,Urine Negative ng/ml (<300); Phencyclidine Screen,Urine Negative ng/ml (<25)
[2022-05-02 14:16] LABS: Methadone Screen,Urine Negative ng/ml (<300)
[2022-05-02 14:17] LABS: Opiate Screen,Urine Negative ng/ml (<300)
== END ==
LOC: LAB 05-17 10:57 → LAB.DROPOF 05-17 11:06
PROVIDERS: PCP Emergency Medicine; Visit Provider Emergency Medicine
DX: M47.812 Spondylosis without myelopathy or radiculopathy, cervical region (principal)
CPT/HCPCS: 80305

== ENCOUNTER 2022-05-16 09:11 | Emergency (ER) | payer OTHER, SELFPAY ==
--- NOTE | 2022-05-16 09:07 | ECG_ITS ---
APPROVED REPORT Exam: Resting ECG HR:62 bpm ECG Measurements Heart Rate 62 AXES ND 180 P 84 QRSd 112 QRS 85 QT 386 T 65 QTc 391 Conclusion SINUS RHYTHM WITH SINUS ARRHYTHMIA MODERATE INTRAVENTRICULAR CONDUCTION DELAY [105+ ms QRS DURATION, 80+ ms Q/S IN V1/V2, NO Q AND 60+ ms R IN I/aVL/V5/V6] EARLY REPOLARIZATION [ST ELEVATION WITH NORMALLY INFLECTED T-WAVE] ABNORMAL ECG UNCONFIRMED REPORT Electronically signed by : Ash Rao MD 05/16/2022 21:38:26
[2022-05-16 09:12] VITALS: BP 131/86; PULSE 69; RESP 22; TEMP 36.5; O2SAT 98; BMI 21.1
[2022-05-16 09:13] VITALS: BMI 21.1
--- NOTE | 2022-05-16 09:13 | XR_ITS ---
FINAL REPORT CLINICAL HISTORY: cp FINDINGS: SINGLE-VIEW CHEST The heart size is normal. The mediastinum is normal. The lungs are clear. There is no pneumothorax. IMPRESSION: No acute cardiopulmonary process. Reviewed, Interpreted and Dictated by Devyn Jaimes III, MD Transcribed by Margie Silva Authenticated and [facility]
--- NOTE | 2022-05-16 09:16 | HMH.EDGENADL ---
ED Disposition Clinical Impression: Atypical chest pain Disposition: Home, Self-Care Condition on Discharge: Good Instructions: DI for Atypical Chest Pain Additional Instructions: Taking diclofenac daily and use [place] for pain. Additional instructions for CHEST PAIN: See your physician as soon as possible for further evaluation. Return immediately if worsening chest pain, vomiting, shortness of breath, fever, coughing of blood. Referrals: Colin Hamm MD [Primary Care Provider] - - Critical Care Critical Care Time: No Attestation: On 05/16/22, the high probability of a clinically significant, sudden or life threatening deterioration of the following system(s) required my full and direct attention, intervention and personal management. The time I documented below is in addition to time spent performing reported procedures but includes the following listed in this critical care notation. Medical Decision Making - Medical Records Medical records reviewed: Yes: I reviewed the patient's medical records. MR Comment: Reviewed previous cardiac cath report from 2019, normal coronary arteries, see below. Reviewed CTA from 2019, see below. Reviewed echocardiogram report 2019, see below. Reviewed associated emergency department visit, seen by me in the emergency department for chest pain and syncope. - Tacos Inquiry Pt receiving controlled substance: No Vital Signs: 05/16/22 09:12 05/16/22 09:31 Temperature 97.7 F Temperature Source Oral Pulse Rate 67 Pulse Rate [Radial] 69 Respiratory Rate 22 17 Blood Pressure 112/66 Blood Pressure [Right Arm] 131/86 Blood Pressure Mean 81 Blood Pressure Mean [Right Arm] 101 Blood Pressure Position [Right Arm] Sitting 02 Sat by Pulse Oximetry 98 98 Oxygen Delivery Method Room Air - Lab Data Lab Results 05/16/22 09:15: WBC 7.3, RBC 4.63, Hgb 13.5 L, Hct 42.6, MCV 92.0, MCH 29.0, MCHC 31.6 L, RDW 13.8, Plt Count 317, MPV 8.0, Neut % (Auto) 55.8, Lymph % (Auto) 32.2, [place] % (Auto) 5.7, Eos % (Auto) 5.0, Baso % (Auto) 1.3, Neut # (Auto) 4.0, Lymph # (Auto) 2.3, [place] # (Auto) 0.4, Eos # (Auto) 0.4, Baso # (Auto) 0.1 05/16/22 09:15: Sodium 140, Potassium 3.9, Chloride 106, Carbon Dioxide 27, Anion Gap 10.9, BUN 9, Creatinine 0.60 L, Estimated Creat Clear 168, Estimated GFR 149, Est GFR ( Amer) 181, Glucose 121 H, Calcium 9.3, Troponin I < 0.01 Result diagrams: 05/16/22 09:15 05/16/22 09:15 Orders (Tests/Meds): ED MEDICATIONS Discontinued Medications Generic Name Dose Route Start Last Admin Trade Name Marina PRN Reason Stop Dose Admin Ketorolac Tromethamine 30 mg 05/16/22 09:35 05/16/22 09:36 Ketorolac 30mg/Ml Vial IV 05/16/22 09:36 30 mg ONCE ONE Administration Ketorolac Tromethamine 30 mg 05/16/22 09:36 05/16/22 09:37 Ketorolac 30mg/Ml Vial IV 05/16/22 09:37 Not Given ONCE ONE ORDERS Category Date Time Status Chest XR -- portable [XR chest portable] Stat Exams 05/16/22 09:13 Taken Troponin I Q3H Lab 05/16/22 12:15 Ordered Troponin I Q3H Lab 05/16/22 15:15 Ordered Prior cardiac cath, ECHO, and CTA chest: Patient Location: [facility] Frame Tender: YANI Hernandez RT (R) PROCEDURES Left heart catheterization Left ventriculogram Selective coronary angiogram INDICATION Acute anterior ST elevation myocardial infarction Informed consent was obtained prior to the procedure. COMPLICATIONS none Estimated Blood Loss: less than 10 mls TECHNIQUE One percent lidocaine used to anesthetize the right anterior aspect of the wrist. The right radial artery was accessed via the Seldinger technique. A 6 Latvian sheath was placed in the right radial artery. 2.5 mg of verapamil, 800 mcg of nitroglycerin, 1mg Lidocaine and 5000 U Heparin were given through the arterial sheath. A Papa catheter was also used to perform left heart catheterization, left ventriculogram and selective c
[2022-05-16 09:28] LABS: Basophils # 0.1 K/mm3 (0-0.2); Basophils % 1.3 % (0.1-2.0); Eosinophils # 0.4 K/mm3 (0.0-0.4); Hematocrit 42.6 % (42.0-52.0); Hemoglobin 13.5 g/dL (14.1-18.0); Lymphocytes # 2.3 K/mm3 (0.7-4.5); Lymphocytes % 32.2 % (10-50); Mean Corpuscular HGB Conc 31.6 g/dL (31.8-35.4); Monocytes # 0.4 K/mm3 (0.1-1.0); Monocytes % 5.7 % (1.7-9.3); Neutrophils % 55.8 % (37.0-80.0); Platelet Count 317 K/mm3 (142-424); Red Blood Count 4.63 M/mm3 (4.60-6.20); Red Cell Distribution Width 13.8 % (11.5-17.5); White Blood Count 7.3 K/mm3 (4.8-10.8)
[2022-05-16 09:29] LABS: Chloride 106 mmol/L (98-107); Sodium 140 mmol/L (136-145)
[2022-05-16 09:30] LABS: Potassium 3.9 mmoL/L (3.5-5.1)
[2022-05-16 09:31] VITALS: BP 112/66; PULSE 67; RESP 17; O2SAT 98
[2022-05-16 09:33] LABS: Anion Gap 10.9 mEq/L (5-15); Blood Urea Nitrogen 9 mg/dl (9-20); Calcium 9.3 mg/dl (8.4-10.2); Carbon Dioxide 27 mmol/L (22.0-30.0); Creatinine Clearance Estimated 168 mL/min (50-200); Estimated Glomerular Filt Rate 149 ml/min (>60); GFR (African American) 181 ML/MIN (>60); Glucose 121 mg/dl (74-100)
[2022-05-16 09:45] LABS: Troponin I < 0.01 ng/ml (0.00-0.034)
--- NOTE | 2022-05-16 09:49 | PC.NURSE ---
pt offered warm blankets, pt declined
[2022-05-16 10:00] VITALS: BP 102/55; PULSE 58; RESP 16; O2SAT 98
[2022-05-16 10:10] VITALS: BP 102/55; PULSE 58; RESP 16; TEMP 36.5; O2SAT 98
== END 2022-05-16 10:10 | disposition home or self-care (01) ==
PROVIDERS: Emergency Provider Emergency Medicine; PCP Emergency Medicine
DX: R07.89 Other chest pain (principal); I10 Essential (primary) hypertension; F17.210 Nicotine dependence, cigarettes, uncomplicated
CPT/HCPCS: 71045; 80048; 84484; 85025; 93005; 96374; 99284

== ENCOUNTER 2022-06-27 12:06 | Emergency (ER) | payer OTHER, SELFPAY ==
[2022-06-27 12:26] VITALS: BP 102/60; PULSE 78; RESP 15; TEMP 37.2; O2SAT 97; BMI 22.4
--- NOTE | 2022-06-27 12:50 | HMH.EDUTC ---
[facility] Disposition Clinical Impression: Need for Tdap vaccination Laceration of left ring finger Qualifiers: Encounter type: initial encounter Damage to nail status: with damage Foreign body presence: without foreign body Qualified Code(s): S61.315A - Laceration without foreign body of left ring finger with damage to nail, initial encounter Disposition: Home, Self-Care Condition on Discharge: Good Instructions: Tetanus, Diphtheria, Pertussis (Tdap) Vaccine, DI for Nail Bed Injury, DI for Minor Laceration Additional Instructions: Keep the wound clean and dry. Keep a dressing on it if you are going to be getting it dirty. Watch the for signs of infection, such as redness, swelling, drainage, fever. etc. take tylenol or ibuprofen for pain. Follow up with your regular doctor. GO TO THE ER FOR ANY WORSENING SYMPTOMS OR CONCERNS. Prescriptions: Mupirocin [Bactroban 2% Ointment 22gm tube] 1 applicatio TP TID 7 Days #1 gm Transmission Status: Received by [facility] cephALEXin [cephALEXin 500mg capsule] 500 mg PO Q6H 10 Days #40 cap Transmission Status: Received by [facility] Referrals: Colin Hamm MD [Primary Care Provider] - Time of Disposition: 12:59 Medical Decision Making - Medical Records Medical records reviewed: No: I reviewed the patient's medical records. - Tacos Inquiry Pt receiving controlled substance: No Vital Signs: 06/27/22 12:26 06/27/22 13:01 Temperature 98.9 F 98.9 F Temperature Source Oral Pulse Rate 78 Pulse Rate [Left] 78 Respiratory Rate 15 15 Blood Pressure 102/60 L Blood Pressure [Right Arm] 102/60 L Blood Pressure Mean [Right Arm] 74 02 Sat by Pulse Oximetry 97 Orders (Tests/Meds): ED MEDICATIONS Discontinued Medications Generic Name Dose Route Start Last Admin Trade Name Freq PRN Reason Stop Dose Admin Tetanus/Reduced Diphtheria/Acell Pertussis 0.5 ml 06/27/22 12:30 06/27/22 12:46 Tet/Diphth/Pert-Adult 0.5ml Syringe IM 06/27/22 12:31 0.5 ml .ONCE ONE Administration [facility] HPI - General Stated complaint: Tip of finger cut Time Seen by Provider: 06/27/22 12:50 Mode of Arrival: Ambulatory Source of Information: Patient Limitations: No Limitations Description of Symptoms (Recalled from Triage Doc. by RN): patient comes in for tetanus shot. patient cut left ring finger today. HEENT Symptoms (Recalled from RN notes): No Resp Symptoms (Recalled from RN notes): No Skin Symptoms (Recalled from RN notes): Yes MS Symptoms (Recalled from RN notes): No Functional Status (Recalled from RN notes): n/a - History of Present Illness Provider Complaint: He was working with an old wheel [place] when it broke and he got cut on the tip of his left ring finger. His tetanus immunization is not up to date. - Related Data Home Medications Medication Instructions Recorded Confirmed Diclofenac Sodium [Diclofenac 75mg 75 mg PO BID 05/16/22 05/16/22 Tab] Previous Rx's Medication Instructions Recorded hydrocodone 7.5 mg-acetaminophen 1 tab PO TID #90 tab 05/02/22 325 mg tablet olanzapine 15 mg tablet 15 mg PO HS #30 tab 06/22/22 Mupirocin [Bactroban 2% Ointment 1 applicatio TP TID 7 Days #1 gm 06/27/22 22gm tube] cephALEXin [cephALEXin 500mg 500 mg PO Q6H 10 Days #40 cap 06/27/22 capsule] Allergies Allergy/AdvReac Type Severity Reaction Status Date / Time amoxicillin Allergy Mild Rash Verified 06/27/22 12:29 oxycodone Allergy rash, hives Verified 06/27/22 12:29 Penicillins Allergy Unknown Verified 06/27/22 12:29 allergy reaction - Worker's Comp Is this a Worker's Comp case?: No [facility] History - Hepatitis A Screen Attestation statement:: This patient has been screened for Hepatitis A risk factors. I have reviewed the patient's past medical history: Yes Medical History: Reports:: Hypertension Denies:: Cancer, Diabetes Mellitus Type 1, Diabetes Mellitus Type 2, Internal
[2022-06-27 13:01] VITALS: BP 102/60; PULSE 78; RESP 15; TEMP 37.2
== END 2022-06-27 13:06 | disposition home or self-care (01) ==
PROVIDERS: Emergency Provider Nurse Practitioner Family; PCP Emergency Medicine
DX: S61.315A Laceration without foreign body of left ring finger with damage to nail, initial encounter (principal); W45.8XXA Other foreign body or object entering through skin, initial encounter; Z23 Encounter for immunization
CPT/HCPCS: 90471; 90715; 99212; G0463

== ENCOUNTER → 2022-06-28 19:15 | Outpatient (CLI) | payer OTHER, SELFPAY ==
[2022-06-28 15:24] LABS: Amphetamine/Metha Screen,Urine Negative ng/ml (<1000)
[2022-06-28 15:25] LABS: Barbiturates Screen,Urine Negative ng/ml (<200); Benzodiazepines Screen,Urine Negative ng/ml (<200)
[2022-06-28 15:26] LABS: Cannabinoid Screen,Urine Negative ng/ml (<50)
[2022-06-28 15:27] LABS: Cocaine Screen,Urine Negative ng/ml (<300); Methadone Screen,Urine Negative ng/ml (<300)
[2022-06-28 15:28] LABS: Opiate Screen,Urine Positive ng/ml (<300); Phencyclidine Screen,Urine Negative ng/ml (<25)
== END ==
PROVIDERS: PCP Emergency Medicine; Visit Provider Emergency Medicine
DX: M54.50 Low back pain, unspecified (principal)
CPT/HCPCS: 80305

== ENCOUNTER → 2022-09-14 08:42 | Outpatient (POV) | payer OTHER, SELFPAY ==
[2022-09-14 09:25] VITALS: BP 108/64; PULSE 61; RESP 18; TEMP 36.7; O2SAT 99; BMI 23.7
--- NOTE | 2022-09-14 09:55 | EXP.PAIN.SOA ---
[facility] Pain Management SOAP Note Subjective:: Patient is a pleasant 42-year-old male who presents today for follow-up. We are currently treating the patient for degenerative disc disease of cervical spine with cervical radiculopathy symptoms, chronic neck pain, chronic low back pain, bilateral hip pain. Patient rates his pain today a 6 out of 10. Patient denies any new trauma or injury. Patient denies any change to location or type of pain he experiences. Patient did have a neck surgery in 2019 at . Patient has had injective therapy in the past however he states that these only provided temporary to no relief. Patient is currently managed with [place] 5 mg 3 times a day by Dr. Hamm's office. Patient denies any side effects from this medication. He states this medication is adequately helping his pain symptoms. He is also prescribed diclofenac 75 mg twice daily however patient states he does not take this on a regular basis. His Tacos is [id number]. It has been reviewed and appropriate. Review of Systems: General: No recent weight changes, no fever, no sleep disturbances Respiratory: No cough, no shortness of air, no recurring pulmonary infections Cardiovascular/peripheral vascular: No chest pain, no palpitations, no edema, no shortness of breath Gastrointestinal: No new onset incontinence, normal bowel movements reported Genitourinary: No new onset incontinence Musculoskeletal: Neck pain, low back pain, leg pain Psychiatric: [Normal mood/affect] Neurological: [Denies weakness in extremities], [denies balance issues] Objective:: Physical Exam: General: Alert and oriented x3, no acute distress, pleasant and cooperative Lungs: Respirations even and unlabored, symmetrical chest expansion Eyes: PERRL Musculoskeletal: Flexion and extension of cervical, lumbar [spine] somewhat guarded secondary to pain, [antalgic gait noted] Neurological: Speech clear, no gross sensory deficit Assessment:: Degenerative disc disease of cervical spine with cervical radiculopathy symptoms, chronic neck pain, chronic low back pain, bilateral hip pain Plan:: Patient continues to have significant pain in his neck and low back that radiates into his bilateral lower extremities. Patient has tried and failed conservative therapies such as injective therapy, topical medications, heat and ice, physical therapy and at home exercising and stretching for longer than 6 weeks. I have counseled the patient that he would be a good candidate for a spinal cord stimulator trial. Risk and benefits were discussed with the patient and educational handouts were given at today's visit. We will follow-up with the patient in 3 months. Patient will return to clinic in 3 months for reevaluation of symptoms and follow-up. Patient has been instructed to contact the clinic with any concerns before the next appointment. Dr. Walters has reviewed this note and agrees with this plan of care. This note was dictated using voice recognition software and make contain errors or omissions. [facility] Medical History Abdominal pain Dyspnea Palpitations Social History (Updated 08/28/22 @ 09:30 by JACOBO Castle) Smoking Status: Former smoker pack-years: 22 how long ago did patient quit smokin months ago second hand exposure: Yes alcohol intake: former substance use type: denies use and marijuana current occupational status: unemployed Travel in the last 8 weeks: None household members: friend(s) housing: house number of children: 3 current occupation: [employer] current occupational exposures/hazards: No caffeine: Yes
== END ==
PROVIDERS: PCP Emergency Medicine; Visit Provider Student in an Organized Health Care Education/Training Program
DX: M50.10 Cervical disc disorder with radiculopathy, unspecified cervical region (principal); M54.50 Low back pain, unspecified; G89.29 Other chronic pain; M25.551 Pain in right hip; M25.552 Pain in left hip; Z79.899 Other long term (current) drug therapy
CPT/HCPCS: 99212; G0463

== ENCOUNTER → 2022-10-25 14:04 | Outpatient (CLI) | payer OTHER, SELFPAY ==
[2022-10-25 14:48] LABS: Amphetamine/Metha Screen,Urine Negative ng/ml (<1000); Barbiturates Screen,Urine Negative ng/ml (<200)
[2022-10-25 14:49] LABS: Benzodiazepines Screen,Urine Negative ng/ml (<200)
[2022-10-25 14:50] LABS: Cannabinoid Screen,Urine Negative ng/ml (<50); Cocaine Screen,Urine Negative ng/ml (<300)
[2022-10-25 14:51] LABS: Methadone Screen,Urine Negative ng/ml (<300)
[2022-10-25 14:52] LABS: Opiate Screen,Urine Positive ng/ml (<300); Phencyclidine Screen,Urine Negative ng/ml (<25)
== END ==
PROVIDERS: PCP Emergency Medicine; Visit Provider Emergency Medicine
DX: Z79.899 Other long term (current) drug therapy (principal)
CPT/HCPCS: 80305

== ENCOUNTER → 2022-11-13 09:31 | Outpatient (CLI) | payer OTHER, SELFPAY ==
--- NOTE | 2022-11-13 09:31 | CT_ITS ---
FINAL REPORT TECHNIQUE: Postcontrast axial images through the abdomen and pelvis were performed. This study was performed with techniques to keep radiation doses as low as reasonably achievable, (ALARA). Individualized dose reduction techniques using automated exposure control or adjustment of mA and/or kV according to the patient's size were employed. CLINICAL HISTORY: abdominal pain, poss hernia COMPARISON: September 2020 FINDINGS: Abdomen: There is mild bibasilar atelectasis. The liver is normal in size and attenuation. The gallbladder is present. The spleen is unremarkable. The adrenals are normal. The pancreas is unremarkable. The kidneys enhance appropriately. The aorta is normal in caliber. No free fluid or adenopathy is identified. No findings for mechanical bowel obstruction are identified. There is a small right paraumbilical hernia containing fat. Hernia orifice measures 9 mm in the hernia sac measures 17 mm which is slightly larger as compared to the prior exam. Pelvis: The appendix is not identified. The urinary bladder is unremarkable. No free fluid, free air, abscess or adenopathy is identified. IMPRESSION: Small right paraumbilical fat containing hernia, slightly larger. Reviewed, Interpreted and Dictated by Devyn Jaimes III, MD Transcribed by Fabrice Walsh Authenticated and [facility]
== END ==
PROVIDERS: PCP Emergency Medicine; Visit Provider Surgery
DX: K42.9 Umbilical hernia without obstruction or gangrene (principal)
CPT/HCPCS: 74177; Q9967

== ENCOUNTER → 2022-12-14 14:13 | Outpatient (CLI) | payer OTHER, SELFPAY ==
[2022-12-14 14:59] LABS: Basophils # 0.1 K/mm3 (0-0.2); Basophils % 1.2 % (0.1-2.0); Eosinophils # 0.4 K/mm3 (0.0-0.4); Eosinophils % 4.2 % (0.1-12.0); Hematocrit 37.7 % (42.0-52.0); Hemoglobin 12.1 g/dL (14.1-18.0); Lymphocytes # 2.5 K/mm3 (0.7-4.5); Lymphocytes % 26.8 % (10-50); Mean Corpuscular HGB Conc 32.1 g/dL (31.8-35.4); Mean Corpuscular Hemoglobin 27.5 pg (27.0-31.2); Mean Corpuscular Volume 85.8 fl (80-94); Mean Platelet Volume 7.7 fl (7.4-10.4); Monocytes # 0.6 K/mm3 (0.1-1.0); Monocytes % 6.5 % (1.7-9.3); Neutrophils # 5.8 K/mm3 (1.8-7.8); Neutrophils % 61.4 % (37.0-80.0); Platelet Count 272 K/mm3 (142-424); Red Cell Distribution Width 13.3 % (11.5-17.5); White Blood Count 9.4 K/mm3 (4.8-10.8)
[2022-12-14 15:29] LABS: Alanine Aminotransferase 25 U/L (12-78); Albumin Level 4.7 g/dl (3.5-5.0); Albumin/Globulin Ratio 1.8 (1.1-1.8); Alkaline Phosphatase 69 U/L (38-126); Anion Gap 12.2 mEq/L (5-15); Aspartate Amino Transferase 25 U/L (17-59); Bilirubin,Total 0.3 mg/dl (0.2-1.3); Blood Urea Nitrogen 17 mg/dl (9-20); Carbon Dioxide 26 mmol/L (22.0-30.0); Chloride 105 mmol/L (98-107); Estimated Glomerular Filt Rate 83 ml/min (>60); GFR (African American) 100 ML/MIN (>60); Globulin 2.6 g/dL (1.3-3.2); Glucose 84 mg/dl (74-100); Potassium 4.2 mmoL/L (3.5-5.1); Sodium 139 mmol/L (136-145); Total Protein,Serum 7.3 g/dl (6.3-8.2)
[2022-12-18 08:00] LABS: Hep A Ab, IgM NEGATIVE; Hepatitis B Core Antibody IgM NEGATIVE; Hepatitis B Surface Antigen NEGATIVE; Hepatitis C Antibody <0.1
== END ==
PROVIDERS: PCP Emergency Medicine; Visit Provider Surgery
DX: Z01.812 Encounter for preprocedural laboratory examination (principal); K42.9 Umbilical hernia without obstruction or gangrene
CPT/HCPCS: 36415; 80053; 80074; 85025

== ENCOUNTER 2022-12-18 07:40 | Day surgery (SDC) | payer OTHER, SELFPAY ==
[2022-12-14 13:00] VITALS: BMI 24.0
[2022-12-18] VITALS (9 sets, daily range): BP systolic 109–130; BP diastolic 60–87; PULSE 66–94; RESP 13–18; TEMP 36.6–43; O2SAT 94–100
--- NOTE | 2022-12-18 08:11 | P.PN_ITS ---
[facility] Disclaimer: The information contained in this section may have been updated after the patient was seen, as this information can be updated by other users. Medical History Abdominal pain Asthma Dyspnea Generalized anxiety disorder Palpitations Paranoid schizophrenia Surgical History History of appendectomy History of facial fracture repair History of fusion of cervical spine History of hand surgery History of hernia repair Family History Other No significant family history Social History (Updated 12/18/22 @ 07:56 by Citlali Gilmore RN) Smoking Status: Former smoker pack-years: 22 how long ago did patient quit smokin months ago second hand exposure: No alcohol intake: never substance use type: denies use current occupational status: unemployed and disabled Travel in the last 8 weeks: None household members: friend(s) housing: house number of children: 3 current occupation: [employer] current occupational exposures/hazards: No caffeine: Yes [facility] Anesthesia Checklist Patient Identification Patient Identification: Verbal (Name & ) Structural Data Admitted From: Home Planned Operative Procedure/s: ventral hernia repair Consent for Planned Operative Procedure(s) Verified: Yes NPO Status Verified Time NPO: 00:00 Additional verifications Anesthesia Reactions: No Hx Blood Transfusions: No Blood Transfusion Reaction: No Airway Assessment C-Spine Mobility Assessed: Yes Dentition: Poor Dentition Neurological Assessment Level of Consciousness: Awake, Alert and Appropriate Anesthesia Plan Anesthesia Risk discussed: Yes Anesthesia Plan: Verified ASA Class: II Anesthesia Type: General
--- NOTE | 2022-12-18 10:49 | EXP.OP.NOTE ---
Date of procedure: 12/18/22 Pre-op Diagnosis:: Ventral hernia Post-op Diagnosis:: Same Procedure performed:: Diagnostic laparoscopy Open repair of periumbilical ventral hernia with placement of small sized Bard Ventralex mesh Surgeon:: Devyn Muñoz MD FARM FACILITY MANAGER:: Jasiel Wilkinson Anesthesia: GETA Estimated blood loss (mL): 10 Clinical Note:: Patient is a 42-year-old male from [facility] who presents for ventral hernia repair.? He was referred by Dr. Hamm for umbilical hernia .? Patient describes a longstanding history of swelling at his umbilical area.? I had initially seen him in the office on 10/31/2022.? He states that over the past several months the area has increased in size.? He has stabbing pain in the location when having a bowel movement or when urinating.? Patient stated previously that he had surgery in [facility] and had mesh placed in the groin area.? He also states that he had surgery in [facility] around 2014 or 2015 for bands around my intestines .? Examination revealed what appeared to be mini laparotomy inferior to his umbilical area.? Given this history I made attempts to obtain prior surgical records and had ordered a CT scan to evaluate.? CT scan revealed small right periumbilical fat-containing hernia, slightly larger. ? Apparently this had been seen on CT scan 2 years ago.? Multiple attempts have been made to contact multiple hospitals in the region of [facility] and there is no record of him having surgery at those locations. Given the tiny hernia at his umbilical area with the more significant degree of pain and tenderness at the location with previous mini laparotomy infraumbilically felt that laparoscopically directed procedure would be warranted. Operative findings:: He had an extremely tiny hernia at the umbilical area with herniated preperitoneal fat through approximately a 4 mm defect. Inferior to this there were some omental adhesions to his midline scar. Dissection was carried out to see if there was a hernia at this location and there was some peritoneal defect but no evidence of any fascial defect. Operative note:: Patient was taken to the operating room. He was placed in a supine position. General anesthesia was induced. Abdomen was prepped and draped in the standard surgical fashion. 5 mm optical trocar was inserted carefully in the left subcostal area into the peritoneal cavity. CO2 pneumoperitoneum was achieved. Laparoscopic surveillance was carried out. There were some omental adhesions to the midline focally inferior to the umbilical area. Surveillance revealed that this was posterior to his subumbilical scar. There was a tiny defect at the umbilical area with herniated preperitoneal fat from the falciform ligament. Additional trochars were placed in the left lower and right lower abdomen. Dissection was carried out dissecting the adherent omentum from the peritoneum. There was no evidence of any true fascial defect. The preperitoneal fat at the umbilical site was then reduced and the falciform ligament was taken down partially using TAVARES ultrasonic harmonic hima to allow for mesh placement. This was an extremely tiny defect measuring about 4 mm with herniated preperitoneal fat. Plan was made for placement of Ventralex through an open incision. Tiny subumbilical incision was made and dissection was carried down through subcutaneous tissues. The hernia sac was dissected free from the umbilical subdermis using Metzenbaum dissection. Peritoneum of the hernia sac was excised to the fascial edge defect. Overall size of the defect measured approximately 4 mm. Hernia sac was sent off as specimen. Small sized Bard Ventralex mesh measuring 4.3 cm circular diameter was inserted through the defect. Laparoscopy was performed after CO2 pneumoperitoneum was reestablished. This revealed mesh to be in a good position with good fascial overlap. The mesh was secured with several OPTi fix tacks . The Prolene
--- NOTE | 2022-12-18 10:54 | EXP.ANES.I ---
[facility] Anesthesia Record Part I Anesthesia Record I Intake, IV Amount: 1,200 Estimated blood loss (mL): 10 Urine output (mL): 0 Blood Pressure: 124/70 SaO2: 97 Pulse Rate: 79 Respiratory Rate: 13 Temperature: 97.8 F Patient is:: Drowsy Stable to PACU at:: 10:55
--- NOTE | 2022-12-18 12:33 | P.PNANES_ITS ---
[facility] Anesthesia Record Part II Anesthesia Record Part II Discharge Time: 11:25 Destination: Surgical Day Care (OP Surgery) PACU nurse assessment reviewed?: Yes Patient Condition:: Good Anesthesia Complications:: None Swallowing reflex intact?: Yes Cyanosis?: No Blood Pressure: 130/75 Pulse Rate: 82 Temperature: 97.8 F Mental Status: Alert & Oriented Pain level:: 0 Nausea and/or vomitting:: None Intake, IV Amount: 0
== END 2022-12-18 12:00 | disposition home or self-care (01) ==
PROVIDERS: PCP Emergency Medicine; Visit Provider Surgery
PROC: 0WQF4ZZ Repair Abdominal Wall, Percutaneous Endoscopic Approach (ICD-10-PCS; CPT 49591; principal; 2022-12-18 09:15)
DX: K43.9 Ventral hernia without obstruction or gangrene (principal); Z79.899 Other long term (current) drug therapy
CPT/HCPCS: 49591; 96374; C1781

== ENCOUNTER → 2022-12-25 11:45 | Outpatient (CLI) | payer OTHER, SELFPAY ==
[2022-12-25 16:16] LABS: Benzodiazepines Screen,Urine Negative ng/ml (<200)
[2022-12-25 16:17] LABS: Cannabinoid Screen,Urine Negative ng/ml (<50)
[2022-12-25 16:18] LABS: Cocaine Screen,Urine Negative ng/ml (<300); Methadone Screen,Urine Negative ng/ml (<300)
[2022-12-25 16:19] LABS: Opiate Screen,Urine Positive ng/ml (<300)
[2022-12-25 16:20] LABS: Phencyclidine Screen,Urine Negative ng/ml (<25)
[2022-12-25 16:31] LABS: Barbiturates Screen,Urine Negative ng/ml (<200)
[2022-12-27 18:41] LABS: Amphetamine/Metha Screen,Urine Negative ng/ml (<1000)
== END ==
PROVIDERS: PCP Emergency Medicine; Visit Provider Emergency Medicine
DX: Z79.899 Other long term (current) drug therapy (principal)
CPT/HCPCS: 80305

== ENCOUNTER → 2023-01-08 10:59 | Outpatient (POV) | payer OTHER, SELFPAY ==
--- NOTE | 2023-01-08 11:17 | EXP.PAIN.SOA ---
[facility] Pain Management SOAP Note Subjective:: Patient is a pleasant 42-year-old male who presents today for follow-up. We are currently treating the patient for degenerative disc disease of cervical spine with cervical radiculopathy symptoms, chronic neck pain, chronic low back pain, bilateral knee pain. Today he rates his pain a 6 out of 10. Patient denies any new trauma or injury. Patient denies any change to location or type of pain he experiences. Patient states he continues to experience significant pain in his neck. Patient does describe this as a aching, throbbing sensation that is worse with increased activity. Patient has had surgery in the past and states that his surgeon did say his screws and plates did move from his prior surgery and this is what is causing the additional pain. Patient states he is scheduled to have revision surgery on the to fix this. Patient is currently managed with [place] 7.5 mg 3 times a day from Dr. Hamm's office. Patient denies any side effects from this medication. Patient is currently managed from our office with diclofenac 75 mg twice a day. Patient denies any side effects from this medication. Patient denies any cardiac or kidney issues in the past. His Tacos is [id number]. Its been reviewed and appropriate. review of Systems: General: No recent weight changes, no fever, no sleep disturbances Respiratory: No cough, no shortness of air, no recurring pulmonary infections Cardiovascular/peripheral vascular: No chest pain, no palpitations, no edema, no shortness of breath Gastrointestinal: No new onset incontinence, normal bowel movements reported Genitourinary: No new onset incontinence Musculoskeletal: Low back pain, neck pain Psychiatric: [Normal mood/affect] Neurological: [Denies weakness in extremities], [denies balance issues] Objective:: Physical Exam: General: Alert and oriented x3, no acute distress, pleasant and cooperative Lungs: Respirations even and unlabored, symmetrical chest expansion Eyes: PERRL Musculoskeletal: Flexion and extension of lumbar [spine] somewhat guarded secondary to pain, [antalgic gait noted] Neurological: Speech clear, no gross sensory deficit ORT score updated with low risk Assessment:: Degenerative disc disease of cervical spine with cervical radiculopathy symptoms, chronic neck pain, chronic low back pain, bilateral hip pain Plan:: Patient continues to experience significant pain in his neck however he is scheduled for upcoming surgery at the end of this month. I will refill the patient's diclofenac 75 mg twice daily and provide a 3-month supply of this medication. I have counseled the patient to take this with food to minimize GI upset and that to discontinue all other NSAIDs while on this medication. Patient will return to clinic in 3 months for reevaluation of symptoms, medication refill and follow-up. Patient has been instructed to contact the clinic with any concerns before the next appointment. Dr. Walters has reviewed this note and agrees with this plan of care. This note was dictated using voice recognition software and make contain errors or omissions. [facility] Disclaimer: The information contained in this section may have been updated after the patient was seen, as this information can be updated by other users. Medical History Abdominal pain Asthma Dyspnea Generalized anxiety disorder Palpitations Paranoid schizophrenia Stable on Zyprexa. Surgical History History of appendectomy History of facial fracture repair History of fusion of cervical spine History of hand surgery History of hernia repair Family History Other No significant family history Social History Smoking Status: Former smoker pack-years: 22 how long ago did giselle
[2023-01-08 12:12] VITALS: BP 111/81; PULSE 75; RESP 18; O2SAT 99; BMI 25.3
== END | disposition home or self-care (01) ==
PROVIDERS: PCP Emergency Medicine; Visit Provider Nurse Practitioner Family
DX: M50.10 Cervical disc disorder with radiculopathy, unspecified cervical region (principal); M54.50 Low back pain, unspecified; M25.551 Pain in right hip; M25.552 Pain in left hip; G89.29 Other chronic pain
CPT/HCPCS: 99212; G0463

== ENCOUNTER → 2023-01-11 09:25 | Outpatient (CLI) | payer OTHER, SELFPAY ==
[2023-01-16 20:12] LABS: Cotinine 211.4 ng/mL (.); Nicotine <10.0 ng/mL (.)
== END ==
PROVIDERS: PCP Emergency Medicine; Visit Provider Nurse Practitioner Family
DX: Z01.818 Encounter for other preprocedural examination (principal)
CPT/HCPCS: 80323; G0480

== ENCOUNTER 2023-02-11 10:59 | Emergency (ER) | payer OTHER, SELFPAY ==
--- NOTE | 2023-02-11 11:00 | ECG_ITS ---
APPROVED REPORT Exam: Resting ECG HR:62 bpm ECG Measurements Heart Rate 62 AXES CA 161 P 72 QRSd 121 QRS 81 QT 394 T 55 QTc 400 Conclusion SINUS RHYTHM MODERATE INTRAVENTRICULAR CONDUCTION DELAY [110+ ms QRS DURATION] BORDERLINE ECG UNCONFIRMED REPORT Electronically signed by : Ash Rao MD 02/13/2023 03:08:31
[2023-02-11 11:03] VITALS: BP 126/72; PULSE 69; RESP 18; TEMP 36.6; O2SAT 97; BMI 25.3
--- NOTE | 2023-02-11 11:06 | XR_ITS ---
PROCEDURE INFORMATION: Exam: XR Chest Exam date and time: 02/11/2023 11:30 AM Age: 43 years old Clinical indication: Chest wall pain; Additional info: Chest pain TECHNIQUE: Imaging protocol: Radiologic exam of the chest. Views: 2 views. COMPARISON: CR XR CHEST PORTABLE 05/16/2022 9:08 AM FINDINGS: Lungs: Unremarkable. No consolidation. Pleural spaces: Unremarkable. No pleural effusion. No pneumothorax. Heart/Mediastinum: Unremarkable. No cardiomegaly. Bones/joints: Unremarkable. IMPRESSION: No acute findings.
[2023-02-11 11:20] LABS: Chloride 105 mmol/L (98-107); Potassium 3.9 mmoL/L (3.5-5.1); Sodium 141 mmol/L (136-145)
[2023-02-11 11:22] LABS: Blood Urea Nitrogen 9 mg/dl (9-20); Creatinine Clearance Estimated 150 mL/min (50-200); Estimated Glomerular Filt Rate 107 ml/min (>60); GFR (African American) 129 ML/MIN (>60)
[2023-02-11 11:23] LABS: Alanine Aminotransferase 38 U/L (12-78); Albumin/Globulin Ratio 1.5 (1.1-1.8); Alkaline Phosphatase 92 U/L (38-126); Anion Gap 12.9 mEq/L (5-15); Aspartate Amino Transferase 32 U/L (17-59); Bilirubin,Total 0.3 mg/dl (0.2-1.3); Carbon Dioxide 27 mmol/L (22.0-30.0); Globulin 3.4 g/dL (1.3-3.2); Total Protein,Serum 8.4 g/dl (6.3-8.2)
[2023-02-11 11:24] LABS: Calcium 9.5 mg/dl (8.4-10.2); Glucose 102 mg/dl (74-100)
[2023-02-11 11:27] LABS: Basophils # 0.1 K/mm3 (0-0.2); Basophils % 1.2 % (0.1-2.0); Eosinophils # 0.3 K/mm3 (0.0-0.4); Eosinophils % 4.1 % (0.1-12.0); Hemoglobin 12.5 g/dL (14.1-18.0); Lymphocytes # 1.8 K/mm3 (0.7-4.5); Lymphocytes % 22.1 % (10-50); Mean Corpuscular HGB Conc 32.8 g/dL (31.8-35.4); Mean Corpuscular Hemoglobin 27.5 pg (27.0-31.2); Mean Corpuscular Volume 83.8 fl (80-94); Mean Platelet Volume 7.2 fl (7.4-10.4); Monocytes # 0.4 K/mm3 (0.1-1.0); Monocytes % 5.3 % (1.7-9.3); Neutrophils # 5.5 K/mm3 (1.8-7.8); Neutrophils % 67.2 % (37.0-80.0); Platelet Count 393 K/mm3 (142-424); Red Blood Count 4.54 M/mm3 (4.60-6.20); Red Cell Distribution Width 13.9 % (11.5-17.5); White Blood Count 8.1 K/mm3 (4.8-10.8)
[2023-02-11 11:37] LABS: Troponin I < 0.01 ng/ml (0.00-0.034)
[2023-02-11 12:25] LABS: NT Pro Brain Natriuretic Pep. 36.9 pg/mL (0-125)
--- NOTE | 2023-02-11 13:32 | HMH.EDGENADL ---
Discharge Plan Disposition Patient Disposition: Home, Self-Care Condition: Fair Prescriptions Prescriptions: New prednisone 50 mg tablet 50 mg PO DAILY 5 Days Qty: 5 0RF doxycycline hyclate 100 mg tablet 100 mg PO BID 5 Days Qty: 10 0RF No Action albuterol sulfate [Proventil HFA] 90 mcg/actuation HFA aerosol inhaler 2 puff inhalation Q6H PRN (Reason: shortness of breath or wheezing) Qty: 8.5 1RF olanzapine [Zyprexa] 20 mg tablet 20 mg PO HS Qty: 30 3RF Vraylar 1.5 mg capsule 1.5 mg PO DAILY Qty: 30 3RF diclofenac sodium 75 MG tablet,delayed release (DR/EC) 75 mg PO BID Qty: 60 2RF Referrals Follow up/Referrals: Colin Hamm MD [Primary Care Provider] - See instructions Clinical Impressions Clinical Impression: COPD exacerbation Instructions Patient Instructions: DI for Chronic Obstructive Pulmonary Disease Discharge ED Provider: Ben Arriaza General Adult HPI General Chief complaint: Chest Pain Stated complaint: CP Time Seen by Provider: 02/11/23 11:30 Mode of Arrival: Ambulatory Source of Information: Patient Limitations: No Limitations Description of Symptoms (Recalled from ER Triage Doc. by RN): Pt presents to ED c/o midsternal chest pain that started 2 days ago. pt states he has had SOA. pt states chest pain became worse last night. History of Present Illness HPI narrative: Patient is a 43-year-old male with a past medical history of smoking who presents with concern for midsternal chest pain. He says that his symptoms started 2 days ago. He says that he feels like he cannot get a deep breath. He does note that he does feel little bit worse when he lies flat. Denies any leg swelling. Denies any numbness or tingling into his extremities. Denies any jaw pain. Denies any nausea or diaphoresis. Denies any sputum production. He says he feels like he is coughing and cannot get anything up. Related Data Previous Rx's Medication Instructions Recorded albuterol sulfate 90 mcg/actuation 2 puff inhalation Q6H PRN 08/28/22 aerosol inhaler (Proventil HFA) shortness of breath or wheezing #8.5 grams cariprazine 1.5 mg capsule 1.5 mg PO DAILY . #30 caps 01/08/23 (Vraylar) diclofenac sodium 75 mg 75 mg PO BID unknown #60 tabs 01/08/23 tablet,delayed release olanzapine 20 mg tablet (Zyprexa) 20 mg PO HS . #30 tabs 01/08/23 doxycycline hyclate 100 mg tablet 100 mg PO BID 5 days #10 tabs 02/11/23 prednisone 50 mg tablet 50 mg PO DAILY 5 days #5 tabs 02/11/23 Allergies Allergy/AdvReac Type Severity Reaction Status Date / Time amoxicillin Allergy Mild Rash Verified 01/11/23 09:15 oxycodone Allergy rash, hives Verified 01/11/23 09:15 Penicillins Allergy Hives Verified 01/11/23 09:15 [facility] Disclaimer: The information contained in this section may have been updated after the patient was seen, as this information can be updated by other users. Medical History Abdominal pain Asthma Dyspnea Generalized anxiety disorder Palpitations Paranoid schizophrenia Stable on Zyprexa. Surgical History History of appendectomy History of facial fracture repair History of fusion of cervical spine History of hand surgery History of hernia repair Family History Other No significant family history Social History Smoking Status: Never smoker how long ago did patient quit smokin months ago second hand exposure: No alcohol intake: never substance use type: denies use current occupational status: disabled Travel in the last 8 weeks: None household members: friend(s) housing: house number of children: 3 current occupation: [employer] current occupational exposures/hazards: No caffeine
[2023-02-11 13:46] VITALS: BP 125/79; PULSE 79; RESP 18; TEMP 36.7; O2SAT 97
== END 2023-02-11 13:50 | disposition home or self-care (01) ==
PROVIDERS: Emergency Provider Student in an Organized Health Care Education/Training Program; PCP Emergency Medicine
DX: J44.1 Chronic obstructive pulmonary disease with (acute) exacerbation (principal); R07.9 Chest pain, unspecified
CPT/HCPCS: 71046; 80053; 83880; 84484; 85025; 93005; 96374; 96375; 99285

== ENCOUNTER → 2023-02-20 11:15 | Outpatient (CLI) | payer OTHER, SELFPAY ==
[2023-02-20 14:12] LABS: Amphetamine/Metha Screen,Urine Negative ng/ml (<1000)
[2023-02-20 14:13] LABS: Barbiturates Screen,Urine Negative ng/ml (<200)
[2023-02-20 14:14] LABS: Benzodiazepines Screen,Urine Negative ng/ml (<200); Cannabinoid Screen,Urine Negative ng/ml (<50)
[2023-02-20 14:16] LABS: Cocaine Screen,Urine Negative ng/ml (<300); Methadone Screen,Urine Negative ng/ml (<300)
[2023-02-20 14:17] LABS: Opiate Screen,Urine Positive ng/ml (<300)
[2023-02-20 14:18] LABS: Phencyclidine Screen,Urine Negative ng/ml (<25)
== END ==
PROVIDERS: PCP Emergency Medicine; Visit Provider Emergency Medicine
DX: Z79.899 Other long term (current) drug therapy (principal)
CPT/HCPCS: 80305

== ENCOUNTER → 2023-04-18 23:13 | Outpatient (CLI) | payer OTHER, SELFPAY ==
[2023-04-18 14:15] LABS: Basophils # 0.1 K/mm3 (0-0.2); Eosinophils # 0.3 K/mm3 (0.0-0.4); Eosinophils % 5.3 % (0.1-12.0); Hematocrit 38.2 % (42.0-52.0); Hemoglobin 12.3 g/dL (14.1-18.0); Lymphocytes # 2.4 K/mm3 (0.7-4.5); Lymphocytes % 37.5 % (10-50); Mean Corpuscular HGB Conc 32.2 g/dL (31.8-35.4); Mean Corpuscular Hemoglobin 27.2 pg (27.0-31.2); Mean Corpuscular Volume 84.3 fl (80-94); Mean Platelet Volume 7.9 fl (7.4-10.4); Monocytes # 0.4 K/mm3 (0.1-1.0); Monocytes % 6.9 % (1.7-9.3); Neutrophils # 3.2 K/mm3 (1.8-7.8); Neutrophils % 49.4 % (37.0-80.0); Platelet Count 359 K/mm3 (142-424); Red Blood Count 4.52 M/mm3 (4.60-6.20); Red Cell Distribution Width 13.9 % (11.5-17.5); White Blood Count 6.5 K/mm3 (4.8-10.8)
[2023-04-18 14:27] LABS: Chloride 102 mmol/L (98-107); Potassium 4.3 mmoL/L (3.5-5.1); Sodium 139 mmol/L (136-145)
[2023-04-18 14:29] LABS: Alanine Aminotransferase 24 U/L (12-78); Aspartate Amino Transferase 32 U/L (17-59); Blood Urea Nitrogen 13 mg/dl (9-20); Estimated Glomerular Filt Rate 93 ml/min (>60); GFR (African American) 113 ML/MIN (>60)
[2023-04-18 14:30] LABS: Albumin Level 4.6 g/dl (3.5-5.0); Albumin/Globulin Ratio 1.7 (1.1-1.8); Alkaline Phosphatase 89 U/L (38-126); Amphetamine/Metha Screen,Urine Negative ng/ml (<1000); Anion Gap 17.3 mEq/L (5-15); Calcium 9.3 mg/dl (8.4-10.2); Carbon Dioxide 24 mmol/L (22.0-30.0); Chol/HDL Ratio 4.6 (1-3.5); Cholesterol 207 mg/dl (140-200); Globulin 2.7 g/dL (1.3-3.2); Glucose 82 mg/dl (74-100); HDL Cholesterol 45 mg/dl (40-60); Total Protein,Serum 7.3 g/dl (6.3-8.2); Triglycerides 214 mg/dl (30-150); VLDL Cholesterol 43 mg/dL (0-40)
[2023-04-18 14:31] LABS: Barbiturates Screen,Urine Negative ng/ml (<200); Benzodiazepines Screen,Urine Negative ng/ml (<200); Bilirubin,Total 0.1 mg/dl (0.2-1.3)
[2023-04-18 14:33] LABS: Cannabinoid Screen,Urine Negative ng/ml (<50)
[2023-04-18 14:34] LABS: Cocaine Screen,Urine Negative ng/ml (<300); Methadone Screen,Urine Negative ng/ml (<300); Uric Acid 6.2 mg/dl (3.5-8.5)
[2023-04-18 14:36] LABS: Opiate Screen,Urine Positive ng/ml (<300); Phencyclidine Screen,Urine Negative ng/ml (<25)
[2023-04-18 14:38] LABS: C-Reactive Protein 6.7 mg/L (0-4)
[2023-04-18 14:43] LABS: Direct LDL Cholesterol 121.44 mg/dL (100-129)
[2023-04-18 15:04] LABS: Thyroid Stimulating Hormone 1.43 uIU/mL (0.465-4.68)
[2023-04-18 15:05] LABS: Erythrocyte Sedimentation Rate 14 mm/hr (0-15)
[2023-04-20 11:22] LABS: Anti-Cyclic Citrullinated Pept 3 units (0-19)
[2023-04-20 12:22] LABS: Anti-Centromere B Antibodies <0.2 AI (0.0-0.9); Anti-DNA (DS) Ab Qn <1 IU/mL (0-9); Anti-Jo-1 <0.2 AI (0.0-0.9); Anti-Smith Antibody <0.2 AI (0.0-0.9); Antichromatin Antibodies <0.2 AI (0.0-0.9); Antiscleroderma-70 Antibodies <0.2 AI (0.0-0.9); RA Latex Turbid. 11.2 IU/mL (<14.0); RNP Antibodies 0.2 AI (0.0-0.9); Sjogren's Anti-SS-A <0.2 AI (0.0-0.9); Sjogren's Anti-SS-B <0.2 AI (0.0-0.9)
[2023-04-24 22:19] LABS: Lyme B. burgdorferi PCR Blood Negative (Negative)
== END ==
PROVIDERS: PCP Emergency Medicine; Visit Provider Emergency Medicine
DX: Z79.899 Other long term (current) drug therapy (principal); M25.50 Pain in unspecified joint
CPT/HCPCS: 80053; 80061; 80305; 84443; 84550; 85025; 85651; 86140; 86200; 86225; 86235; 86431; 87476

== ENCOUNTER → 2023-06-12 23:33 | Outpatient (CLI) | payer OTHER, SELFPAY ==
[2023-06-12 19:23] LABS: Amphetamine/Metha Screen,Urine Negative ng/ml (<1000)
[2023-06-12 19:24] LABS: Barbiturates Screen,Urine Negative ng/ml (<200)
[2023-06-12 19:25] LABS: Benzodiazepines Screen,Urine Negative ng/ml (<200)
[2023-06-12 19:26] LABS: Cocaine Screen,Urine Negative ng/ml (<300)
[2023-06-12 19:27] LABS: Methadone Screen,Urine Negative ng/ml (<300); Opiate Screen,Urine Positive ng/ml (<300)
[2023-06-12 19:28] LABS: Phencyclidine Screen,Urine Negative ng/ml (<25)
[2023-06-12 19:51] LABS: Cannabinoid Screen,Urine Positive ng/ml (<50)
== END ==
PROVIDERS: PCP Emergency Medicine; Visit Provider Emergency Medicine
DX: Z79.899 Other long term (current) drug therapy (principal)
CPT/HCPCS: 80305

== ENCOUNTER → 2023-08-07 11:10 | Outpatient (CLI) | payer OTHER, SELFPAY ==
[2023-08-07 20:03] LABS: Amphetamine/Metha Screen,Urine Negative ng/ml (<1000); Barbiturates Screen,Urine Negative ng/ml (<200)
[2023-08-07 20:04] LABS: Benzodiazepines Screen,Urine Negative ng/ml (<200)
[2023-08-07 20:05] LABS: Cannabinoid Screen,Urine Negative ng/ml (<50)
[2023-08-07 20:06] LABS: Cocaine Screen,Urine Negative ng/ml (<300); Methadone Screen,Urine Negative ng/ml (<300)
[2023-08-07 20:07] LABS: Opiate Screen,Urine Positive ng/ml (<300)
[2023-08-07 20:08] LABS: Phencyclidine Screen,Urine Negative ng/ml (<25)
== END ==
PROVIDERS: PCP Emergency Medicine; Visit Provider Emergency Medicine
DX: Z79.899 Other long term (current) drug therapy (principal)
CPT/HCPCS: 80305

== ENCOUNTER → 2023-10-08 16:18 | Outpatient (CLI) | payer OTHER, SELFPAY ==
[2023-10-08 15:35] LABS: Barbiturates Screen,Urine Negative ng/ml (<200); Benzodiazepines Screen,Urine Negative ng/ml (<200)
[2023-10-08 15:36] LABS: Amphetamine/Metha Screen,Urine Negative ng/ml (<1000)
[2023-10-08 15:37] LABS: Cannabinoid Screen,Urine Negative ng/ml (<50); Cocaine Screen,Urine Negative ng/ml (<300)
[2023-10-08 15:38] LABS: Opiate Screen,Urine Positive ng/ml (<300)
[2023-10-08 15:39] LABS: Phencyclidine Screen,Urine Negative ng/ml (<25)
[2023-10-08 15:50] LABS: Methadone Screen,Urine Negative ng/ml (<300)
== END ==
PROVIDERS: PCP Emergency Medicine; Visit Provider Emergency Medicine
DX: Z79.899 Other long term (current) drug therapy (principal)
CPT/HCPCS: 80305

== ENCOUNTER → 2023-11-15 22:02 | Outpatient (CLI) | payer OTHER, SELFPAY ==
[2023-11-15 16:43] LABS: Amphetamine/Metha Screen,Urine Negative ng/ml (<1000)
[2023-11-15 16:44] LABS: Barbiturates Screen,Urine Negative ng/ml (<200)
[2023-11-15 16:45] LABS: Benzodiazepines Screen,Urine Negative ng/ml (<200); Cannabinoid Screen,Urine Negative ng/ml (<50)
[2023-11-15 16:46] LABS: Cocaine Screen,Urine Negative ng/ml (<300)
[2023-11-15 16:47] LABS: Methadone Screen,Urine Negative ng/ml (<300); Opiate Screen,Urine Positive ng/ml (<300)
[2023-11-15 16:48] LABS: Phencyclidine Screen,Urine Negative ng/ml (<25)
== END ==
LOC: LAB.DROPOF 22:03
PROVIDERS: PCP Nurse Practitioner Family; Visit Provider Nurse Practitioner Family
DX: F41.1 Generalized anxiety disorder (principal)
CPT/HCPCS: 80307

== ENCOUNTER 2023-12-11 20:47 | Outpatient (CLI) | payer OTHER, SELFPAY ==
[2023-12-11 19:46] LABS: Amphetamine/Metha Screen,Urine Negative ng/ml (<1000)
[2023-12-11 19:47] LABS: Barbiturates Screen,Urine Negative ng/ml (<200); Benzodiazepines Screen,Urine Negative ng/ml (<200)
[2023-12-11 19:48] LABS: Cannabinoid Screen,Urine Negative ng/ml (<50)
[2023-12-11 19:49] LABS: Cocaine Screen,Urine Negative ng/ml (<300)
[2023-12-11 19:50] LABS: Methadone Screen,Urine Negative ng/ml (<300)
[2023-12-11 19:51] LABS: Opiate Screen,Urine Positive ng/ml (<300); Phencyclidine Screen,Urine Negative ng/ml (<25)
== END 2023-12-11 23:59 ==
LOC: LAB.DROPOF 20:48
PROVIDERS: PCP Nurse Practitioner Family; Visit Provider Nurse Practitioner Family
DX: M54.12 Radiculopathy, cervical region (principal); Z79.899 Other long term (current) drug therapy
CPT/HCPCS: 80307

== ENCOUNTER 2024-01-09 19:09 | Emergency (ER) | payer OTHER, SELFPAY ==
[2024-01-09] VITALS (13 sets, daily range): BP systolic 118–151; BP diastolic 77–99; PULSE 42–64; RESP 12–20; TEMP 36.6; O2SAT 94–99; BMI 28.8
--- NOTE | 2024-01-09 19:17 | ECG_ITS ---
APPROVED REPORT Exam: Resting ECG HR:49 bpm ECG Measurements Heart Rate 49 AXES FL 189 P 74 QRSd 117 QRS 82 QT 425 T 55 QTc 396 Conclusion SINUS BRADYCARDIA MODERATE INTRAVENTRICULAR CONDUCTION DELAY [105+ ms QRS DURATION, 80+ ms Q/S IN V1/V2, NO Q AND 60+ ms R IN I/aVL/V5/V6] ABNORMAL ECG UNCONFIRMED REPORT Electronically signed by : Ash Rao MD 01/09/2024 20:33:16
--- NOTE | 2024-01-09 19:25 | ED_ITS ---
I was consulted by the PATRICIA and we discussed the complexity of the problems being addressed. I approved the treatment and management plan for this patient's care in the emergency department, thus performing a substantive portion of the medical decision making. Signed, Catrina De Anda MD Discharge Plan Disposition Chief Complaint: Dizziness Prescriptions Prescriptions: No Action albuterol sulfate [Proventil HFA] 90 mcg/actuation HFA aerosol inhaler 2 puff inhalation Q6H PRN (Reason: shortness of breath or wheezing) Qty: 8.5 1RF lidocaine 5 % adhesive patch,medicated 1 patch transdermal DAILY Qty: 30 1RF diclofenac sodium 1 % gel 2 g topical QID Qty: 100 1RF hydrocodone-acetaminophen 7.5-325 mg tablet 1 tab PO TID Qty: 90 0RF Referrals Follow up/Referrals: Mike Simmons APRN [Primary Care Provider] - See instructions Discharge ED Provider: Catrina De Anda General Adult HPI <AUSTEN Carter - Last Filed: 01/09/24 23:22> General Chief complaint: Dizziness Stated complaint: tunnel vision, ANGELA Time Seen by Provider: 01/09/24 19:25 History of Present Illness HPI narrative: Patient is a 43-year-old male who presents with a chief complaint of a near syncopal episode. Patient reports that he was sitting in a recliner when he began feeling dizzy he felt a wave of chills and had sudden diaphoresis. He denied chest pain nausea vomiting headache fever hemoptysis hematochezia melena diarrhea. Patient attempted go to the bathroom and felt like he was going to pass out so he took himself down to the floor. Initially patient stated that he had only had a previous episode last week. However he told Dr. De Anda that he had been having several a day over the last couple of weeks. Patient has no prodrome or any other preceding symptoms. Related Data Previous Rx's Medication Instructions Recorded albuterol sulfate 90 mcg/actuation 2 puff inhalation Q6H PRN 08/28/22 aerosol inhaler (Proventil HFA) shortness of breath or wheezing #8.5 grams diclofenac sodium 1 % topical gel 2 g topical QID #100 grams 02/20/23 lidocaine 5 % topical patch 1 patch transdermal DAILY #30 ea 02/20/23 hydrocodone 7.5 mg-acetaminophen 1 tab PO TID #90 tabs 12/11/23 325 mg tablet Allergies Allergy/AdvReac Type Severity Reaction Status Date / Time amoxicillin Allergy Mild Rash Verified 12/11/23 13:04 oxycodone Allergy rash, hives Verified 12/11/23 13:04 Penicillins Allergy Hives Verified 12/11/23 13:04 PFSH <AUSTEN Carter - Last Filed: 01/09/24 23:22> [facility] Disclaimer: The information contained in this section may have been updated after the patient was seen, as this information can be updated by other users. Medical History Abdominal pain Asthma Dyspnea Generalized anxiety disorder Palpitations Paranoid schizophrenia Stable on Zyprexa. Surgical History History of appendectomy History of facial fracture repair History of fusion of cervical spine History of hand surgery History of hernia repair Family History Other No significant family history Social History Smoking Status: Current every day smoker tobacco type: cigarettes packs per day: 1 how long ago did patient quit smokin months ago second hand exposure: No alcohol intake: never substance use type: denies use current occupational status: disabled Travel in the last 8 weeks: None household members: friend(s) housing: house number of children: 3 current occupation: [employer] current occupational exposures/hazards: No caffeine: Yes <AUSTEN Carter - Last Filed: 01/09/24 23:22> ROS Obtained: Yes Systems reviewed as appropriate & no additional complaints except as documented Physical Exam <AUSTEN Carter - Last Filed: 01/09/24 23:22> General General appearance: alert and in no apparent distress Head Head exam: atraumatic and normal inspection (Only 1-1/2 cm laceration to the lateral aspect of the right eyebrow. Extraocular movements intact. Pupils equal round reactive to light) ENT ENT exam: Present normal exam, normal oropharynx and mucous membranes moist Neck Neck exam: Present normal inspection, full ROM and trachea midline; Absent tenderness or lymphadenopathy Chest Chest inspection: Present normal inspection and symmetric chest wall rise; Absent tenderness Respiratory Respiratory exam: Present normal lung sounds bilaterally Cardiovascular Cardiovascular exam: Present regular rate, normal rhythm, normal heart sounds, +S1 and +S2 Abdominal Exam Abdominal exam: Present soft and normal bowel sounds; Absent tenderness, guarding or rebound Extremities Exam Extremities exam: Present normal inspection and full ROM; Absent tenderness Back Exam Back exam: Present normal inspection and full ROM; Absent tenderness Neurological Exam Neurological exam: Present alert (Although patient seems oriented he also seems to have a hazy recollection of his medical history) Psychiatric Psychiatric exam: Present normal affect and normal mood Skin Skin exam: Present warm (Echo mentioned above in the head exam), dry and normal color Lymphatic Lymphatic Findings: no adenopathy Medical Decision Making <AUSTEN Carter - Last Filed: 01/09/24 23:22> Medical Records Medical records reviewed: Yes I reviewed the patient's medical records. Tacos Inquiry Pt receiving controlled substance: No Vital Signs: 01/09/24 19:09 01/09/24 19:30 01/09/24 20:00 Temperature 97.9 F Temperature Source Oral Pulse Rate 50 L 52 L Pulse Rate [Orthostatic Lying] Pulse Rate [Orthostatic Sitting] Pulse Rate [Orthostatic Standing] Pulse Rate [Right Radial] 56 L Respiratory Rate 20 17 13 Blood Pressure 128/83 135/91 H Blood Pressure [Orthostatic Lying Right Arm] Blood Pressure [Orthostatic Sitting] Blood Pressure [Orthostatic Standing] Blood Pressure [Right Arm] 140/89 Blood Pressure Mean [Right Arm] 106 Blood Pressure Source [Right Arm] Automatic Cuff Blood Pressure Position [Right Arm] Supine 02 Sat by Pulse Oximetry 99 95 94 L Oxygen Delivery Method Room Air 01/09/24 20:18 01/09/24 20:15 01/09/24 20:16 Temperature Temperature Source Pulse Rate 54 L 53 L Pulse Rate [Orthostatic Lying] 46 L Pulse Rate [Orthostatic Sitting] 49 L Pulse Rate [Orthostatic Standing] 54 L Pulse Rate [Right Radial] Respiratory Rate 17 12 Blood Pressure 134/83 135/87 Blood Pressure [Orthostatic Lying Right Arm] 134/83 Blood Pressure [Orthostatic Sitting] 135/87 Blood Pressure [Orthostatic Standing] 120/78 Blood Pressure [Right Arm] Blood Pressure Mean [Right Arm] Blood Pressure Source [Right Arm] Blood Pressure Position [Right Arm] 02 Sat by Pulse Oximetry 97 97 Oxygen Delivery Method 01/09/24 20:17 01/09/24 20:30 01/09/24 21:00 Temperature Temperature Source Pulse Rate 56 L 46 L 48 L Pulse Rate [Orthostatic Lying] Pulse Rate [Orthostatic Sitting] Pulse Rate [Orthostatic Standing] Pulse Rate [Right Radial] Respiratory Rate 12 12 12 Blood Pressure 118/78 131/86 134/86 Blood Pressure [Orthostatic Lying Right Arm] Blood Pressure [Orthostatic Sitting] Blood Pressure [Orthostatic Standing] Blood Pressure [Right Arm] Blood Pressure Mean [Right Arm] Blood Pressure Source [Right Arm] Blood Pressure Position [Right Arm] 02 Sat by Pulse Oximetry 96 96 96 Oxygen Delivery Method Lab Data Lab results reviewed: Yes I reviewed the patient's lab results. Lab Results 01/09/24 19:20: WBC 6.5, RBC 4.28 L, Hgb 12.1 L, Hct 36.9 L, MCV 86.2, MCH 28.3, MCHC 32.8, RDW 13.6, Plt Count 373, MPV 7.8, Neut % (Auto) 48.6, Lymph % (Auto) 41.5, [place] % (Auto) 5.3, Eos % (Auto) 4.1, Baso % (Auto) 0.4, Neut # (Auto) 3.1, Lymph # (Auto) 2.7, Er[place] # (Auto) 0.4, Eos # (Auto) 0.3, Baso # (Auto) 0.0, D-Dimer 0.47, Sodium 137, Potassium 3.4 L, Chloride 104, Carbon Dioxide 27, Anion Gap 9.4, BUN 10, Creatinine 0.80, Estimated Creat Clear 175, Estimated GFR 107, Est GFR ( Amer) 129, Glucose 109 H, Hemoglobin A1c 5.4, Calcium 8.9, Troponin I < 0.01 01/09/24 19:20 01/09/24 19:20 Orders (Tests/Meds): ORDERS Category Date Time Status BMP [Basic Metabolic Panel] Stat Lab 01/09/24 19:20 Completed CBC w/Auto Diff [Complete Blood Count Auto Diff] Stat Lab 01/09/24 19:20 Completed D-Dimer Stat Lab 01/09/24 19:20 Completed Hemoglobin A1C Stat Lab 01/09/24 19:20 Completed Troponin I Q3H Lab 01/09/24 23:00 Received Troponin I Q3H Lab 01/10/24 02:15 Ordered Troponin I Stat Lab 01/09/24 19:20 Completed ECG initial Besson Routine Y 01/09/24 19:17 Completed Medical Decision Narrative: In summary patient is a 43-year-old male who presents to the emergency department for evaluation of near syncope. Patient is normotensive however sinus bradycardic upon arrival, afebrile. Physical exam is normal with no focal findings including normal heart rate to auscultation regular rate and rhythm Dahlia Coma Score 15 with no focal neurologic deficits. Differential diagnosis includes syncope versus cardiogenic source versus neurologic source. Initial workup will be conducted with hematologic labs twelve-lead EKG chest x-ray. Initial interventions include crystalloid bolus Tylenol and Toradol administration. Initial workup reviewed by me shows that his hematologic labs are nonactionable this plain film chest x-ray informally interpreted by me shows no acute processes. Twelve-lead EKG shows sinus bradycardia without evidence of ACS.. Upon repeat evaluation patient remains in sinus bradycardia with rates as low as the low 40s. He remains chest pain-free. I discussed patient management with cardiology who wanted a second troponin and if it was normal would see him in the office at 10 AM tomorrow.. Second troponin pending at the time of my handoff to Dr. Giraldo at 2300 <Catrina De Anda MD - Last Filed: 01/09/24 22:10> Vital Signs: 01/09/24 19:09 01/09/24 19:30 01/09/24 20:00 Temperature 97.9 F Temperature Source Oral Pulse Rate 50 L 52 L Pulse Rate [Orthostatic Lying] Pulse Rate [Orthostatic Sitting] Pulse Rate [Orthostatic Standing] Pulse Rate [Right Radial] 56 L Respiratory Rate 20 17 13 Blood Pressure 128/83 135/91 H Blood Pressure [Orthostatic Lying Right Arm] Blood Pressure [Orthostatic Sitting] Blood Pressure [Orthostatic Standing] Blood Pressure [Right Arm] 140/89 Blood Pressure Mean [Right Arm] 106 Blood Pressure Source [Right Arm] Automatic Cuff Blood Pressure Position [Right Arm] Supine 02 Sat by Pulse Oximetry 99 95 94 L Oxygen Delivery Method Room Air 01/09/24 20:18 01/09/24 20:15 01/09/24 20:16 Temperature Temperature Source Pulse Rate 54 L 53 L Pulse Rate [Orthostatic Lying] 46 L Pulse Rate [Orthostatic Sitting] 49 L Pulse Rate [Orthostatic Standing] 54 L Pulse Rate [Right Radial] Respiratory Rate 17 12 Blood Pressure 134/83 135/87 Blood Pressure [Orthostatic Lying Right Arm] 134/83 Blood Pressure [Orthostatic Sitting] 135/87 Blood Pressure [Orthostatic Standing] 120/78 Blood Pressure [Right Arm] Blood Pressure Mean [Right Arm] Blood Pressure Source [Right Arm] Blood Pressure Position [Right Arm] 02 Sat by Pulse Oximetry 97 97 Oxygen Delivery Method 01/09/24 20:17 01/09/24 20:30 01/09/24 21:00 Temperature Temperature Source Pulse Rate 56 L 46 L 48 L Pulse Rate [Orthostatic Lying] Pulse Rate [Orthostatic Sitting] Pulse Rate [Orthostatic Standing] Pulse Rate [Right Radial] Respiratory Rate 12 12 12 Blood Pressure 118/78 131/86 134/86 Blood Pressure [Orthostatic Lying Right Arm] Blood Pressure [Orthostatic Sitting] Blood Pressure [Orthostatic Standing] Blood Pressure [Right Arm] Blood Pressure Mean [Right Arm] Blood Pressure Source [Right Arm] Blood Pressure Position [Right Arm] 02 Sat by Pulse Oximetry 96 96 96 Oxygen Delivery Method Lab Data Lab Results 01/09/24 19:20: WBC 6.5, RBC 4.28 L, Hgb 12.1 L, Hct 36.9 L, MCV 86.2, MCH 28.3, MCHC 32.8, RDW 13.6, Plt Count 373, MPV 7.8, Neut % (Auto) 48.6, Lymph % (Auto) 41.5, [place] % (Auto) 5.3, Eos % (Auto) 4.1, Baso % (Auto) 0.4, Neut # (Auto) 3.1, Lymph # (Auto) 2.7, Erath # (Auto) 0.4, Eos # (Auto) 0.3, Baso # (Auto) 0.0, D-D gabby 0.47, Sodium 137, Potassium 3.4 L, Chloride 104, Carbon Dioxide 27, Anion Gap 9.4, BUN 10, Creatinine 0.80, Estimated Creat Clear 175, Estimated GFR 107, Est GFR ( Amer) 129, Glucose 109 H, Hemoglobin A1c 5.4, Calcium 8.9, Troponin I < 0.01 Orders (Tests/Meds): ORDERS Category Date Time Status BMP [Basic Metabolic Panel] Stat Lab 01/09/24 19:20 Completed CBC w/Auto Diff [Complete Blood Count Auto Diff] Stat Lab 01/09/24 19:20 Completed D-Dimer Stat Lab 01/09/24 19:20 Completed Hemoglobin A1C Stat Lab 01/09/24 19:20 Completed Troponin I Q3H Lab 01/09/24 23:00 Received Troponin I Q3H Lab 01/10/24 02:15 Ordered Troponin I Stat Lab 01/09/24 19:20 Completed ECG initial Besson Routine Y 01/09/24 19:17 Completed ECG Data Tracing #1: I reviewed this ECG and interpreted as documented below: EKG I independently reviewed and interpreted that was obtained at 7.17 pm showed bradycardic rate, regular rhythm, no significant ST segment elevations, normal sinus .rhythm ECG initial impression date: 01/09/24 ECG initial impression time: 19:57 Critical Care <AUSTEN Carter - Last Filed: 01/09/24 23:22> Critical Care Time Critical Care Time: No
[2024-01-09 20:43] LABS: Basophils % 0.4 % (0.1-2.0); Eosinophils # 0.3 K/mm3 (0.0-0.4); Eosinophils % 4.1 % (0.1-12.0); Hematocrit 36.9 % (42.0-52.0); Hemoglobin 12.1 g/dL (14.1-18.0); Lymphocytes # 2.7 K/mm3 (0.7-4.5); Lymphocytes % 41.5 % (10-50); Mean Corpuscular HGB Conc 32.8 g/dL (31.8-35.4); Mean Corpuscular Hemoglobin 28.3 pg (27.0-31.2); Mean Corpuscular Volume 86.2 fl (80-94); Mean Platelet Volume 7.8 fl (7.4-10.4); Monocytes # 0.4 K/mm3 (0.1-1.0); Monocytes % 5.3 % (1.7-9.3); Neutrophils # 3.1 K/mm3 (1.8-7.8); Neutrophils % 48.6 % (37.0-80.0); Platelet Count 373 K/mm3 (142-424); Red Blood Count 4.28 M/mm3 (4.60-6.20); Red Cell Distribution Width 13.6 % (11.5-17.5); White Blood Count 6.5 K/mm3 (4.8-10.8)
[2024-01-09 20:45] LABS: Anion Gap 9.4 mEq/L (5-15); Blood Urea Nitrogen 10 mg/dl (9-20); Calcium 8.9 mg/dl (8.4-10.2); Carbon Dioxide 27 mmol/L (22.0-30.0); Chloride 104 mmol/L (98-107); Creatinine Clearance Estimated 175 mL/min (50-200); Estimated Glomerular Filt Rate 107 ml/min (>60); GFR (African American) 129 ML/MIN (>60); Glucose 109 mg/dl (74-100); Potassium 3.4 mmoL/L (3.5-5.1); Sodium 137 mmol/L (136-145)
[2024-01-09 20:49] LABS: D-Dimer 0.47 ug/mL (0.0-0.5)
[2024-01-09 20:59] LABS: Troponin I < 0.01 ng/ml (0.00-0.034)
[2024-01-09 21:00] LABS: Hemoglobin A1C 5.4 % (4.0-6.0)
--- NOTE | 2024-01-09 22:09 | PC.NURSE ---
assisted patient to and from the bathroom at this time.
[2024-01-09 23:37] LABS: Troponin I < 0.01 ng/ml (0.00-0.034)
--- NOTE | 2024-01-09 23:56 | ED_ITS ---
Discharge Plan Disposition Patient Disposition: Home, Self-Care Condition: Fair Prescriptions Prescriptions: No Action albuterol sulfate [Proventil HFA] 90 mcg/actuation HFA aerosol inhaler 2 puff inhalation Q6H PRN (Reason: shortness of breath or wheezing) Qty: 8.5 1RF lidocaine 5 % adhesive patch,medicated 1 patch transdermal DAILY Qty: 30 1RF diclofenac sodium 1 % gel 2 g topical QID Qty: 100 1RF hydrocodone-acetaminophen 7.5-325 mg tablet 1 tab PO TID Qty: 90 0RF Referrals Follow up/Referrals: Mike Simmons APRN [Primary Care Provider] - See instructions Carlos Eduardo Weiner MD [Staff Physician] - See instructions Activity Restrictions/Add. Instructions Additional Instructions/Restrictions: Go directly to the cardiology office at 10 am. Return if worsened lightheadedness or chest pain. Clinical Impressions Clinical Impression: Pre-syncope Instructions Patient Instructions: Fainting Discharge ED Provider: Catrina De Anda General Adult HPI General Chief complaint: Dizziness Stated complaint: tunnel vision, ANGELA Time Seen by Provider: 01/09/24 19:25 Mode of Arrival: Ambulatory Source of Information: Patient Limitations: No Limitations Description of Symptoms (Recalled from ER Triage Doc. by RN): Patient states he started sweating, tunnel vision, dizzy, heart racing, and head ache around 18:00 tonight. Patient states he never completely passed out. Patient reports slight numbness in left arm/leg. Denies any injury. History of Present Illness HPI narrative: 43-year-old male with previous medical history of presyncopal episodes in the past presents with presyncopal episode today. Today patient was sitting down w hen he began to have lightheadedness, sweatiness, lightheadedness, and had to lay down to prevent from passing out. He has had episodes similar to this before but says that they were worked up by cardiology 4 years ago with a cath and Holter monitoring no cause was found and they had improved. No chest pain or shortness of breath and patient is currently asymptomatic aside from very mild weakness. Related Data Previous Rx's Medication Instructions Recorded albuterol sulfate 90 mcg/actuation 2 puff inhalation Q6H PRN 08/28/22 aerosol inhaler (Proventil HFA) shortness of breath or wheezing #8.5 grams diclofenac sodium 1 % topical gel 2 g topical QID #100 grams 02/20/23 lidocaine 5 % topical patch 1 patch transdermal DAILY #30 ea 02/20/23 hydrocodone 7.5 mg-acetaminophen 1 tab PO TID #90 tabs 12/11/23 325 mg tablet Allergies Allergy/AdvReac Type Severity Reaction Status Date / Time amoxicillin Allergy Mild Rash Verified 12/11/23 13:04 oxycodone Allergy rash, hives Verified 12/11/23 13:04 Penicillins Allergy Hives Verified 12/11/23 13:04 PFSH [facility] Disclaimer: The information contained in this section may have been updated after the patient was seen, as this information can be updated by other users. Medical History Abdominal pain Asthma Dyspnea Generalized anxiety disorder Palpitations Paranoid schizophrenia Stable on Zyprexa. Surgical History History of appendectomy History of facial fracture repair History of fusion of cervical spine History of hand surgery History of hernia repair Family History Other No significant family history Social History Smoking Status: Current every day smoker tobacco type: cigarettes packs per day: 1 how long ago did patient quit smokin months ago second hand exposure: No alcohol intake: never substance use type: denies use current occupational status: disabled Travel in the last 8 weeks: None household members: friend(s) housing: house number of children: 3 current occupation: [employer] current occupational exposures/hazards: No caffeine: Yes ROS Obtained: Yes All systems reviewed & no additional complaints except as documented Physical Exam General General appearance: alert and in no apparent distress Head Head exam: atraumatic, normocephalic and normal inspection Eye Eye exam: Present normal appearance, PERRL and EOMI ENT ENT exam: Present normal exam, normal oropharynx, mucous membranes moist, TM's normal bilaterally and normal external ear exam Neck Neck exam: Present normal inspection, full ROM and trachea midline; Absent meningismus or lymphadenopathy Chest Chest inspection: Present normal inspection and symmetric chest wall rise; Absent tenderness Respiratory Respiratory exam: Present normal lung sounds bilaterally Cardiovascular Cardiovascular exam: Present normal rhythm and bradycardia Abdominal Exam Abdominal exam: Present soft and normal bowel sounds; Absent distention, tenderness or guarding Extremities Exam Extremities exam: Present normal inspection, full ROM and normal capillary refill; Absent calf tenderness Back Exam Back exam: Present normal inspection; Absent tenderness Neurological Exam Neurological exam: Present alert and oriented X3 Psychiatric Psychiatric exam: Present normal affect and normal mood Skin Skin exam: Present warm, dry, intact and normal color Lymphatic Lymphatic Findings: no adenopathy Medical Decision Making [place] Inquiry Pt receiving controlled substance: No [place] was queried for this patient: No Vital Signs: 01/09/24 19:09 01/09/24 19:30 01/09/24 20:00 Temperature 97.9 F Temperature Source Oral Pulse Rate 50 L 52 L Pulse Rate [Orthostatic Lying] Pulse Rate [Orthostatic Sitting] Pulse Rate [Orthostatic Standing] Pulse Rate [Right Radial] 56 L Respiratory Rate 20 17 13 Blood Pressure 128/83 135/91 H Blood Pressure [Orthostatic Lying Right Arm] Blood Pressure [Orthostatic Sitting] Blood Pressure [Orthostatic Standing] Blood Pressure [Right Arm] 140/89 Blood Pressure Mean [Right Arm] 106 Blood Pressure Source [Right Arm] Automatic Cuff Blood Pressure Position [Right Arm] Supine 02 Sat by Pulse Oximetry 99 95 94 L Oxygen Delivery Method Room Air 01/09/24 20:18 01/09/24 20:15 01/09/24 20:16 Temperature Temperature Source Pulse Rate 54 L 53 L Pulse Rate [Orthostatic Lying] 46 L Pulse Rate [Orthostatic Sitting] 49 L Pulse Rate [Orthostatic Standing] 54 L Pulse Rate [Right Radial] Respiratory Rate 17 12 Blood Pressure 134/83 135/87 Blood Pressure [Orthostatic Lying Right Arm] 134/83 Blood Pressure [Orthostatic Sitting] 135/87 Blood Pressure [Orthostatic Standing] 120/78 Blood Pressure [Right Arm] Blood Pressure Mean [Right Arm] Blood Pressure Source [Right Arm] Blood Pressure Position [Right Arm] 02 Sat by Pulse Oximetry 97 97 Oxygen Delivery Method 01/09/24 20:17 01/09/24 20:30 01/09/24 21:00 Temperature Temperature Source Pulse Rate 56 L 46 L 48 L Pulse Rate [Orthostatic Lying] Pulse Rate [Orthostatic Sitting] Pulse Rate [Orthostatic Standing] Pulse Rate [Right Radial] Respiratory Rate 12 12 12 Blood Pressure 118/78 131/86 134/86 Blood Pressure [Orthostatic Lying Right Arm] Blood Pressure [Orthostatic Sitting] Blood Pressure [Orthostatic Standing] Blood Pressure [Right Arm] Blood Pressure Mean [Right Arm] Blood Pressure Source [Right Arm] Blood Pressure Position [Right Arm] 02 Sat by Pulse Oximetry 96 96 96 Oxygen Delivery Method 01/09/24 21:30 01/09/24 22:01 01/09/24 22:08 Temperature Temperature Source Pulse Rate 64 53 L 49 L Pulse Rate [Orthostatic Lying] Pulse Rate [Orthostatic Sitting] Pulse Rate [Orthostatic Standing] Pulse Rate [Right Radial] Respiratory Rate 14 12 12 Blood Pressure 134/93 H 151/99 H 144/81 H Blood Pressure [Orthostatic Lying Right Arm] Blood Pressure [Orthostatic Sitting] Blood Pressure [Orthostatic Standing] Blood Pressure [Right Arm] Blood Pressure Mean [Right Arm] Blood Pressure Source [Right Arm] Blood Pressure Position [Right Arm] 02 Sat by Pulse Oximetry 97 97 98 Oxygen Delivery Method 01/09/24 22:30 Temperature Temperature Source Pulse Rate 42 L Pulse Rate [Orthostatic Lying] Pulse Rate [Orthostatic Sitting] Pulse Rate [Orthostatic Standing] Pulse Rate [Right Radial] Respiratory Rate 12 Blood Pressure 130/77 Blood Pressure [Orthostatic Lying Right Arm] Blood Pressure [Orthostatic Sitting] Blood Pressure [Orthostatic Standing] Blood Pressure [Right Arm] Blood Pressure Mean [Right Arm] Blood Pressure Source [Right Arm] Blood Pressure Position [Right Arm] 02 Sat by Pulse Oximetry 96 Oxygen Delivery Method Lab Data Lab Results 01/09/24 19:20: WBC 6.5, RBC 4.28 L, Hgb 12.1 L, Hct 36.9 L, MCV 86.2, MCH 28.3, MCHC 32.8, RDW 13.6, Plt Count 373, MPV 7.8, Neut % (Auto) 48.6, Lymph % (Auto) 41.5, Perry % (Auto) 5.3, Eos % (Auto) 4.1, Baso % (Auto) 0.4, Neut # (Auto) 3.1, Lymph # (Auto) 2.7, Perry # (Auto) 0.4, Eos # (Auto) 0.3, Baso # (Auto) 0.0, D- Dimer 0.47, Sodium 137, Potassium 3.4 L, Chloride 104, Carbon Dioxide 27, Anion Gap 9.4, BUN 10, Creatinine 0.80, Estimated Creat Clear 175, Estimated GFR 107, Est GFR ( Amer) 129, Glucose 109 H, Hemoglobin A1c 5.4, Calcium 8.9, Troponin I < 0.01 01/09/24 23:00: Troponin I < 0.01 01/09/24 19:20 01/09/24 19:20 Orders (Tests/Meds): ORDERS Category Date Time Status BMP [Basic Metabolic Panel] Stat Lab 01/09/24 19:20 Completed CBC w/Auto Diff [Complete Blood Count Auto Diff] Stat Lab 01/09/24 19:20 Completed D-Dimer Stat Lab 01/09/24 19:20 Completed Hemoglobin A1C Stat Lab 01/09/24 19:20 Completed Troponin I Q3H Lab 01/09/24 23:00 Completed Troponin I Q3H Lab 01/10/24 02:15 Ordered Troponin I Stat Lab 01/09/24 19:20 Completed ECG initial Besson Routine Y 01/09/24 19:17 Completed ECG Data Tracing #1: I reviewed this ECG and interpreted as documented below: EKG independently reviewed and interpreted shows bradycardic rate, regular rhythm, no significant ST segment elevations, sinus bradycardia. ECG initial impression date: 01/09/24 ECG initial impression time: 19:20 Medical Decision Narrative: Considered multiple causes of patient's transient lightheadedness including vasovagal syncope though he does not seem to have any triggers, hypoglycemia though patient took his blood glucose immediately after his symptoms and had a glucose of 100 on a family members glucometer and also is normoglycemic here, endocrinologic or metabolic causes, ACS, arrhythmia. History and physical are not consistent with CVA or TIA or other emergent causes. For this reason obta ined EKG which independently reviewed and interpreted as above showing sinus bradycardia, and labs which I independently reviewed and interpreted and showed no significant abnormalities of CBC, BMP, troponin and no change in troponin 2 hours later. For this reason discussed with patient that at this time he is unlikely to have ACS but he does have a high risk syncope so contacted cardiology and they agreed to see patient in the clinic at 10 AM. Provided referral and discharge patient while stable after ambulating well in the emergency department and with orthostatic vitals within acceptable limits. Critical Care Critical Care Time Critical Care Time: No
[2024-01-10] VITALS: BP 130/77; PULSE 54; RESP 18; TEMP 37.1; O2SAT 97
== END 2024-01-10 | disposition home or self-care (01) ==
PROVIDERS: Physician Assistant; Emergency Provider Emergency Medicine; PCP Nurse Practitioner Family
DX: R55 Syncope and collapse (principal); R42 Dizziness and giddiness; R51.9 Headache, unspecified; H53.8 Other visual disturbances; R20.0 Anesthesia of skin; J45.909 Unspecified asthma, uncomplicated; R00.1 Bradycardia, unspecified; F17.210 Nicotine dependence, cigarettes, uncomplicated
CPT/HCPCS: 80048; 83036; 84484; 85025; 85378; 93005; 99285

== ENCOUNTER 2025-02-18 11:46 | Outpatient (CLI) | payer OTHER, SELFPAY ==
[2025-02-18 18:10] LABS: Basophils # 0.1 K/mm3 (0-0.2); Basophils % 1.1 % (0.1-2.0); Eosinophils # 0.1 K/mm3 (0.0-0.4); Eosinophils % 1.2 % (0.1-12.0); Hematocrit 36.5 % (42.0-52.0); Hemoglobin 11.9 g/dL (14.1-18.0); Lymphocytes # 2.5 K/mm3 (0.7-4.5); Lymphocytes % 27.9 % (10-50); Mean Corpuscular HGB Conc 32.6 g/dL (31.8-35.4); Mean Corpuscular Hemoglobin 27.9 pg (27.0-31.2); Mean Corpuscular Volume 85.5 fl (80-94); Mean Platelet Volume 10.1 fl (7.4-10.4); Monocytes # 0.4 K/mm3 (0.1-1.0); Monocytes % 4.9 % (1.7-9.3); Neutrophils # 5.7 K/mm3 (1.8-7.8); Neutrophils % 64.6 % (37.0-80.0); Platelet Count 384 K/mm3 (142-424); Red Blood Count 4.27 M/mm3 (4.60-6.20); Red Cell Distribution Width 13.5 % (11.5-17.5); White Blood Count 8.8 K/mm3 (4.8-10.8)
[2025-02-18 20:11] LABS: Alanine Aminotransferase 18 U/L (12-78); Albumin Level 4.7 g/dl (3.5-5.0); Albumin/Globulin Ratio 1.7 (1.1-1.8); Alkaline Phosphatase 80 U/L (38-126); Aspartate Amino Transferase 24 U/L (17-59); Bilirubin,Total 0.4 mg/dl (0.2-1.3); Blood Urea Nitrogen 14 mg/dl (9-20); Calcium 9.3 mg/dl (8.4-10.2); Carbon Dioxide 23 mmol/L (22.0-30.0); Chloride 105 mmol/L (98-107); Chol/HDL Ratio 3.7 (1-3.5); Cholesterol 172 mg/dl (140-200); Estimated Glomerular Filt Rate 123 ml/min (>60); GFR (African American) 149 ML/MIN (>60); Globulin 2.8 g/dL (1.3-3.2); Glucose 87 mg/dl (74-100); HDL Cholesterol 46 mg/dl (40-60); Sodium 140 mmol/L (136-145); Total Protein,Serum 7.5 g/dl (6.3-8.2); Triglycerides 73 mg/dl (30-150); VLDL Cholesterol 15 mg/dL (0-40)
[2025-02-18 20:23] LABS: Direct LDL Cholesterol 118.96 mg/dL (100-129)
[2025-02-18 20:28] LABS: 25-OH Vitamin D, Total 29.1 ng/mL (30-100)
[2025-02-18 20:42] LABS: Thyroid Stimulating Hormone 1.01 uIU/mL (0.465-4.68)
[2025-02-18 21:01] LABS: Vitamin B12 237 pg/mL (239-931)
== END 2025-02-18 23:59 | disposition home or self-care (01) ==
LOC: LAB.DROPOF 02-19 09:42
PROVIDERS: PCP Nurse Practitioner Family; Visit Provider Nurse Practitioner Family
DX: J44.1 Chronic obstructive pulmonary disease with (acute) exacerbation (principal); M25.50 Pain in unspecified joint; M47.812 Spondylosis without myelopathy or radiculopathy, cervical region; R55 Syncope and collapse; M54.12 Radiculopathy, cervical region; F41.1 Generalized anxiety disorder; R68.89 Other general symptoms and signs; Z72.0 Tobacco use
CPT/HCPCS: 80053; 80061; 82306; 82607; 82746; 84443; 85025